=== PATIENT | female | born 1945 | race Caucasian/White ===

== ENCOUNTER → 2020-06-02 | Outpatient (CLI) | payer MEDICARE ==
--- NOTE | 2020-06-02 16:02 | XR ---
EXAMINATION TYPE: XR skull complete DATE OF EXAM: 06/02/2020 COMPARISON: NONE HISTORY: Pre-MRI clearance. Rule out foreign body prior ear surgery. TECHNIQUE: Skull complete with 4 views including both lateral and frontal along with posterior projec tions. FINDINGS: No suspicious metallic intracranial foreign body identified to prevent MRI study. Surgical clips in the left neck are incidentally noted. IMPRESSION: As above.
== END | disposition home or self-care (01) ==
LOC: RADXRMAIN 15:27
PROVIDERS: ATTEND Orthopaedic Surgery Orthopaedic Surgery of the Spine
DX: Z03.89 Encounter for observation for other suspected diseases and conditions ruled out (principal); Z13.9 Encounter for screening, unspecified; Z98.890 Other specified postprocedural states
CPT/HCPCS: 70260

== ENCOUNTER 2020-11-19 11:56 | Emergency (ER) | payer MEDICARE ==
[2020-11-19] MEDS ORDERED: SODIUM CHLORIDE 0.9% 500 ML 500 ML IV ONE (12:39)
--- NOTE | 2020-11-19 12:43 | ED ---
SOB HPI - General Chief Complaint: Shortness of Breath Stated Complaint: dizziness/low blood pressure Time Seen by Provider: 11/19/20 12:28 Source: patient Mode of arrival: wheelchair Limitations: physical limitation - History of Present Illness Initial Comments: Is a 75-year-old female with a history of throat cancer multiple years ago, hypertension, and low back pain who presents emergent department for dyspnea. The patient states that she doesn't and having exertional dyspnea for last 2 weeks. She states that any type of exertion seems to make it worse. She is also been complaining of some lightheadedness that she states is worse with standing. She denies any orthopnea. No lower chrie swelling. She denies any current chest pain. She states that she did have an episode of chest pain about one month ago however had an EKG done at that time and was unremarkable. She has not had any chest pain since these new symptoms started. She does admit to a little bit of a cough that is productive of white phlegm. She denies any fevers or chills. No recent nausea, vomiting, or diarrhea. No fevers or chills. She is vaccinated against Covid. She denies any other acute complaints at this time. - Related Data Home Medications Medication Instructions Recorded Confirmed Acetaminophen Tab [Tylenol Tab] 500 mg PO Q6H PRN 11/19/20 11/19/20 Atorvastatin [Lipitor] 20 mg PO HS 11/19/20 11/19/20 Carvedilol [Coreg] 12.5 mg PO BID 11/19/20 11/19/20 Lisinopril-Hctz 20-12.5 mg 1 tab PO DAILY 11/19/20 11/19/20 [Zestoretic 20-12.5] Allergies Allergy/AdvReac Type Severity Reaction Status Date / Time Penicillins Allergy Rash/Hives Verified 11/19/20 13:11 Review of Systems ROS Statement: Those systems with pertinent positive or pertinent negative responses have been documented in the HPI. ROS Other: All systems not noted in ROS Statement are negative. Past Medical History Past Medical History: Cancer Additional Past Medical History / Comment(s): mouth and throat History of Any Multi-Drug Resistant Organisms: None Reported Past Surgical History: Back Surgery Past Psychological History: No Psychological Hx Reported Smoking Status: Former smoker Past Alcohol Use History: None Reported Past Drug Use History: None Reported General Exam - General Exam Comments Initial Comments: Constitutional: Awake alert Appears comfortable Head: Normocephalic atraumatic Eyes: no conjunctival injection No scleral icterus EOMI Neck: No JVD Supple Heart: Regular rate rhythm normal S1-S2 no murmurs Lungs: Clear to auscultation bilaterally No wheezing No rales Abdomen: Soft nondistended nontender Extremities: Non edematous DP pulses intact Radial pulses intact Neuro: A&Ox3 No focal neurologic deficits Psych: Appropriate mood and affect Limitations: physical limitation Course Vital Signs 11/19/20 11/19/20 11/19/20 12:07 12:30 13:30 Temperature 97.3 F L Pulse Rate 60 55 L Respiratory 22 18 18 Rate Blood Pressure 111/57 121/55 O2 Sat by Pulse 98 99 Oximetry 11/19/20 11/19/20 14:00 15:01 Temperature 97.9 F Pulse Rate 53 L 53 L Respiratory 18 16 Rate Blood Pressure 106/44 99/42 O2 Sat by Pulse 97 99 Oximetry - Reevaluation(s) Reevaluation #1: EKG showing normal sinus rhythm with a rate of 57. His no abnormal ST 7 changes or T-wave inversions. QTC is 406. Other intervals are normal. No ectopy. 11/19/20 12:42 Medical Decision Making - Medical Decision Making Is a 75-year-old female who presents emergency department for shortness of breath and lightheadedness over the last couple of weeks. Patient was evaluated and was nontoxic appearing. Vital signs were stable. Blood pressures tended to run from the low 100s to 120s systolic. The patient had no episodes of lightheadedness here. The patient was evaluated with blood work, chest x-ray, and EKG. All these were unremarkable. D-dimer did come back slightly elevated so a CTA was performed at the chest. This was unremarkable for any PE however did show some mild emphysema which the patient does admit to history of smoking. I inquired about the patient's medications and she states that she did have her lisinopril and Corag doses increased recently. This could be the reason for her lightheadedness especially upon standing. Told to go back to her previous dosing and call her primary doctor in the morning for readjustment of her medications. She can return emergency permission any worsening or changing symptoms or questions were answered. - Lab Data Result diagrams: 11/19/20 13:01 11/19/20 13:01 Lab Results 11/19/20 11/19/20 11/19/20 Range/Units 13: 13: 13:01 WBC 4.6 (3.8-10.6) k/uL RBC 4.63 (3.80-5.40) m/uL Hgb 14.7 (11.4-16.0) gm/dL Hct 42.6 (34.0-46.0) % MCV 92.1 (80.0-100.0) fL MCH 31.7 (25.0-35.0) pg MCHC 34.4 (31.0-37.0) g/dL RDW 12.4 (11.5-15.5) % Plt Count 178 (150-450) k/uL MPV 7.3 Neutrophils % 61 % Lymphocytes % 26 % Monocytes % 8 % Eosinophils % 3 % Basophils % 1 % Neutrophils # 2.8 (1.3-7.7) k/uL Lymphocytes # 1.2 (1.0-4.8) k/uL Monocytes # 0.4 (0-1.0) k/uL Eosinophils # 0.1 (0-0.7) k/uL Basophils # 0.1 (0-0.2) k/uL PT (9.0-12.0) sec INR (<1.2) APTT (22.0-30.0) sec D-Dimer (<0.60) mg/L FEU Sodium 137 (137-145) mmol/L Potassium 4.2 (3.5-5.1) mmol/L Chloride 99 (98-107) mmol/L Carbon Dioxide 32 H (22-30) mmol/L Anion Gap 6 mmol/L BUN 29 H (7-17) mg/dL Creatinine 0.90 (0.52-1.04) mg/dL Est GFR (CKD-EPI)AfAm 73 (>60 ml/min/1.73 sqM) Est GFR (CKD-EPI)NonAf 64 (>60 ml/min/1.73 sqM) Glucose 99 (74-99) mg/dL Calcium 9.2 (8.4-10.2) mg/dL Magnesium 1.9 (1.6-2.3) mg/dL Total Bilirubin 0.8 (0.2-1.3) mg/dL AST 25 (14-36) U/L ALT 10 (4-34) U/L Alkaline Phosphatase 64 (38-126) U/L Troponin I (0.000-0.034) ng/mL NT-Pro-B Natriuret Pep 323 pg/mL Total Protein 6.4 (6.3-8.2) g/dL Albumin 3.9 (3.5-5.0) g/dL Coronavirus (PCR) (Not Detectd) 11/19/20 11/19/20 11/19/20 Range/Units 13:01 13:01 13:01 WBC (3.8-10.6) k/uL RBC (3.80-5.40) m/uL Hgb (11.4-16.0) gm/dL Hct (34.0-46.0) % MCV (80.0-100.0) fL MCH (25.0-35.0) pg MCHC (31.0-37.0) g/dL RDW (11.5-15.5) % Plt Count (150-450) k/uL MPV Neutrophils % % Lymphocytes % % Monocytes % % Eosinophils % % Basophils % % Neutrophils # (1.3-7.7) k/uL Lymphocytes # (1.0-4.8) k/uL Monocytes # (0-1.0) k/uL Eosinophils # (0-0.7) k/uL Basophils # (0-0.2) k/uL PT 11.1 (9.0-12.0) sec INR 1.0 (<1.2) APTT 23.1 (22.0-30.0) sec D-Dimer 0.89 H (<0.60) mg/L FEU Sodium (137-145) mmol/L Potassium (3.5-5.1) mmol/L Chloride (98-107) mmol/L Carbon Dioxide (22-30) mmol/L Anion Gap mmol/L BUN (7-17) mg/dL Creatinine (0.52-1.04) mg/dL Est GFR (CKD-EPI)AfAm (>60 ml/min/1.73 sqM) Est GFR (CKD-EPI)NonAf (>60 ml/min/1.73 sqM) Glucose (74-99) mg/dL Calcium (8.4-10.2) mg/dL Magnesium (1.6-2.3) mg/dL Total Bilirubin (0.2-1.3) mg/dL AST (14-36) U/L ALT (4-34) U/L Alkaline Phosphatase (38-126) U/L Troponin I <0.012 (0.000-0.034) ng/mL NT-Pro-B Natriuret Pep pg/mL Total Protein (6.3-8.2) g/dL Albumin (3.5-5.0) g/dL Coronavirus (PCR) Not Detected (Not Detectd) Disposition Clinical Impression: Dyspnea, Medication side effect, Congestive heart failure Disposition: HOME SELF-CARE Condition: Stable Instructions (If sedation given, give patient instructions): Chronic Hypertension (ED) Additional Instructions: Please decrease your lisinopril dose down to the 10 mg which he was originally and call your primary doctor tomorrow to have your blood pressure medications readjusted area Is patient prescribed a controlled substance at d/c from ED?: No Referrals: Mele Young MD [Primary Care Provider] - 1-2 days
--- NOTE | 2020-11-19 12:56 | XR ---
EXAMINATION TYPE: XR chest 2V DATE OF EXAM: 11/19/2020 COMPARISON: None INDICATION: Short of breath TECHNIQUE: Frontal and lateral views of the chest are obtained. FINDINGS: The heart size is normal. The pulmonary vasculature is normal. The lungs are clear. Lower vertebral thoracic vertebroplasty is evident. There is a compression defo rmity within the mid thoracic level. Good inspiratory effort is present IMPRESSION: 1. No acute pulmonary process. 2. Midthoracic compression deformity of indeterminate age. There is prior vertebroplasty in the lower thoracic.
[2020-11-19 13:14] LABS: Basophils # (A) 0.1 k/uL (0-0.2); Basophils % (A) 1 %; Eosinophils # (A) 0.1 k/uL (0-0.7); Eosinophils % (A) 3 %; HCT 42.6 % (34.0-46.0); HGB 14.7 gm/dL (11.4-16.0); Lymphocytes # (A) 1.2 k/uL (1.0-4.8); Lymphocytes % (A) 26 %; MCH 31.7 pg (25.0-35.0); MCHC 34.4 g/dL (31.0-37.0); MCV 92.1 fL (80.0-100.0); Mean Platelet Volume 7.3; Monocytes # (A) 0.4 k/uL (0-1.0); Monocytes % (A) 8 %; Neutrophils # (A) 2.8 k/uL (1.3-7.7); Neutrophils % (A) 61 %; Platelet Count 178 k/uL (150-450); RBC 4.63 m/uL (3.80-5.40); RDW 12.4 % (11.5-15.5); WBC 4.6 k/uL (3.8-10.6)
[2020-11-19 13:24] LABS: Albumin 3.9 g/dL (3.5-5.0); Calcium 9.2 mg/dL (8.4-10.2); Magnesium 1.9 mg/dL (1.6-2.3); Potassium 4.2 mmol/L (3.5-5.1); Total Bilirubin 0.8 mg/dL (0.2-1.3); Total Protein 6.4 g/dL (6.3-8.2)
[2020-11-19 13:28] LABS: Partial Thromboplastin Time 23.1 sec (22.0-30.0); Prothrombin Time 11.1 sec (9.0-12.0)
[2020-11-19 13:33] LABS: D-Dimer 0.89 mg/L FEU (<0.60)
[2020-11-19 14:20] VITALS: PULSE 53
--- NOTE | 2020-11-19 14:43 | CT ---
EXAMINATION TYPE: CT angio chest DATE OF EXAM: 11/19/2020 COMPARISON: None HISTORY: HYPOTENSION, ELEVATED D-DIMER CT DLP: 270.9 mGycm Automated exposure control for dose reduction was used. CONTRAST: Performed with IV Contrast, patient injected with 80 mL of Isovue 370. There are 3-D post processed images. There is some mild pulmonary emphysema. There is minimal reticular interstitial infiltrate in the pos terior lung reza. Heart appears borderline enlarged. There is small pericardial effusion. There are no hilar masses. There is no mediastinal adenopathy. There is no pleural effusion. Thoracic aorta is atheromatous. Ascending Aorta measures 3.8 cm. There is no dissection. There is normal contrast opacification of the pulmonary arteries. There are no filling defects. There is degenerative spurring in the thoracic spine. There is 25% wedging of T12 vertebra with verte broplasty. There is 40% wedging of T9 vertebra. The sternum appears intact. IMPRESSION: No evidence of pulmonary embolism. COPD. Minimal fibrotic changes and subsegmental atelectasis at the lung bases. mild thoracic compression fractures are probably old.
[2020-11-19 15:02] VITALS: BP 99/42; RESP 16; TEMP 97.9
== END 2020-11-19 15:02 | disposition home or self-care (01) ==
LOC: EC 11:56
DX: I11.0 Hypertensive heart disease with heart failure (principal); I50.9 Heart failure, unspecified; J44.9 Chronic obstructive pulmonary disease, unspecified; Z79.899 Other long term (current) drug therapy; Z87.891 Personal history of nicotine dependence; Z88.0 Allergy status to penicillin; Z20.822 Contact with and (suspected) exposure to COVID-19
CPT/HCPCS: 36415; 93005; 85379; 83880; 80053; 83735; 84484; 85025; 85610; 85730; 87635; 71046; 71275; 99285; Q9967

== ENCOUNTER 2021-05-25 08:23 | Day surgery (SDC) | payer MEDICARE ==
[2021-05-23 15:19] VITALS: BMI 24.0
[2021-05-25 09:05] VITALS: TEMP 97
[2021-05-25] MEDS: LACTATED RINGERS 1,000 ML IV SCH ×2 (09:12→09:35)
[2021-05-25] MEDS ORDERED: LIDOCAINE 1% INJ 10MG/ML (20 ML MDV) ONE (09:36)
[2021-05-25] MEDS ORDERED: PROPOFOL 10 MG/ML 20 ML VIAL IV ONE (09:36)
--- NOTE | 2021-05-25 09:55 | P.PCN ---
Date of Procedure: 05/25/21 Procedure(s) Performed: BRIEF HISTORY: Patient is a 75-year-old pleasant female scheduled for an elective colonoscopy as a part of screening for colorectal neoplasia. PROCEDURE PERFORMED: Colonoscopy with biopsy. PREOPERATIVE DIAGNOSIS: Screening for colon cancer. IV sedation per Anesthesia. PROCEDURE: After informed consent was obtained, the patient, was brought into the endoscopy unit. IV sedation was administered by Anesthesia under continuous monitoring. Digital rectal examination was normal. Initially the Olympus CF-160 flexible video colonoscope was then inserted in the rectum, gradually advanced into the cecum without any difficulty. Careful examination was performed as the scope was gradually being withdrawn. Ileocecal valve and the appendiceal orifice were visualized and appeared normal. Prep was excellent. Mucosa of the cecum, ascending colon, transverse colon, descending colon, appeared normal. In the sigmoid: There was a 3 mm polyp that was removed by cold biopsy. Scattered sigmoid diverticulosis seen. Rest of sigmoid colon, and rectum appeared normal. Retroflexion was performed in the rectum and no lesions were seen. The patient tolerated the procedure well. IMPRESSION: 3 mm; sigmoid polyp status post biopsy Sigmoid diverticulosis RECOMMENDATIONS: Findings of this examination were discussed with the patient is a family. She was advised to follow with the biopsy results. If the biopsy reveals adenoma she can have a repeat colonoscopy in 5 years.
[2021-05-25 10:11] VITALS: BP 156/77; PULSE 68; RESP 20
== END 2021-05-25 10:29 | disposition home or self-care (01) ==
LOC: ORWHC2ENDO 08:23
PROVIDERS: ATTEND Internal Medicine Gastroenterology
DX: Z12.11 Encounter for screening for malignant neoplasm of colon (principal); D12.5 Benign neoplasm of sigmoid colon; K57.30 Diverticulosis of large intestine without perforation or abscess without bleeding; I10 Essential (primary) hypertension; E78.5 Hyperlipidemia, unspecified; Z85.21 Personal history of malignant neoplasm of larynx; Z98.890 Other specified postprocedural states; Z97.2 Presence of dental prosthetic device (complete) (partial); Z79.82 Long term (current) use of aspirin; Z79.899 Other long term (current) drug therapy; Z88.0 Allergy status to penicillin
CPT/HCPCS: 87798 ×3; 87496; 87498; 87529; 88305; 87502; 87634; 45380; J2001; J2704

== ENCOUNTER → 2022-07-22 | Outpatient (CLI) | payer MEDICARE ==
--- NOTE | 2022-07-22 12:02 | CA ---
Transthoracic Echo Report Name: Shirley Montilla Age: 76 Gender: F : 1945 Exam Date: 07/22/2022 11:11 Exam Location: [facility] Ht (in): 64 Wt (lb): 140 Ordering Physician: Mele Young MD Attending/Referring Phys: Audrey Nur PAC [employer] Kacie Craig RDCS Procedure CPT: Indications: I50.9 heart failure Cardiac Hx: Technical Quality: Good Contrast 1: Total Dose (mL): Contrast 2: Total Dose (mL): MEASUREMENTS (Male / Female) Normal Values 2D ECHO LV Diastolic Diameter PLAX 5.0 cm 4.2 - 5.9 / 3.9 - 5.3 cm LV Systolic Diameter PLAX 2.9 cm IVS Diastolic Thickness 1.2 cm 0.6 - 1.0 / 0.6 - 0.9 cm LVPW Diastolic Thickness 1.3 cm 0.6 - 1.0 / 0.6 - 0.9 cm LV Relative Wall Thickness 0.5 RV Internal Dim ED PLAX 3.2 cm LA Systolic Diameter LX 3.7 cm 3.0 - 4.0 / 2.7 - 3.8 cm LA Volume 56.6 cm??? 18 - 58 / 22 - 52 cm??? M-MODE Aortic Root Diameter MM 3.0 cm MV E Point Septal Separation 0.5 cm AV Cusp Separation MM 2.1 cm DOPPLER AV Peak Velocity 133.3 cm/s AV Peak Gradient 7.1 mmHg AI Peak Velocity 559.1 cm/s AI Peak Gradient 125.0 mmHg AI Pressure Half Time 731.6 ms MV Area PHT 9.3 cm??? Mitral E Point Velocity 65.9 cm/s Mitral A Point Velocity 51.3 cm/s Mitral E to A Ratio 1.3 MV Deceleration Time 81.2 ms MV E' Velocity 3.2 cm/s Mitral E to MV E' Ratio 20.6 TR Peak Velocity 335.6 cm/s TR Peak Gradient 45.0 mmHg Right Ventricular Systolic Press 48.4 mmHg FINDINGS Left Ventricle Left ventricular ejection fraction is estimated at 50-55 %. Left ventricular cavity size normal. Mildly increased septal wall thickness. Mildly increased posterior wall thickness. Right Ventricle Normal right ventricular size. Moderate pulmonary hypertension. Right Atrium Normal right atrial size. Left Atrium Mildly increased left atrial volume. No evidence for an atrial septal defect. Mitral Valve Mitral valve thickened. Mild mitral regurgitation. Aortic Valve Trileaflet aortic valve. No aortic stenosis. Fzol-be-yatszuew aortic regurgitation. Tricuspid Valve Structurally normal tricuspid valve. No tricuspid prolapse. No tricuspid stenosis. Mild tricuspid regurgitation. Pulmonic Valve Mild pulmonic regurgitation. Pericardium Normal pericardium. No pericardial effusion. Aorta Normal size aortic root and proximal ascending aorta. CONCLUSIONS Left ventricular ejection fraction 5055% Mild increased left ventricular wall thickness Mild mitral regurgitation Mild to moderate aortic regurgitation No pericardial effusion RVSP 48 Previewed by: Dr. Aydin Sutton DO (Electronically Signed) Final Date: 22 July 2022 12:01
== END | disposition home or self-care (01) ==
LOC: RADECHMAIN 11:07
PROVIDERS: ATTEND Family Medicine
DX: I08.0 Rheumatic disorders of both mitral and aortic valves (principal); I50.9 Heart failure, unspecified
CPT/HCPCS: 93306

== ENCOUNTER 2022-11-16 13:47 | Observation (INO) | payer MEDICARE ==
[2022-11-16] MEDS ORDERED: SODIUM CHLORIDE 0.9% 500 ML 500 ML IV STA (14:00)
--- NOTE | 2022-11-16 14:23 | ED ---
Weakness HPI - General Chief complaint: Weakness Stated complaint: Weakness Time Seen by Provider: 11/16/22 13:59 Source: patient Mode of arrival: ambulatory Limitations: no limitations - History of Present Illness Initial comments: Patient is a 77-year-old female who presents to the emergency department for evaluation of weakness. Patient expresses concern that it started after her blood pressure medication was switched 2 weeks ago. Patient on coreg and lisinopril which was switched to coreg and amlodipine Benzapril. Patient reports nausea which is causing decreased oral intake. She also has dry cough and runny nose. No recent sick contacts. No recent falls. No focal weakness. She denies fever, chills, abdominal pain, vomiting diarrhea, blood in stool. She denies chest pain and shortness of breath. No burning with urination. - Related Data Home Medications Medication Instructions Recorded Confirmed Acetaminophen Tab [Tylenol Tab] 1,000 mg PO Q6H PRN 11/19/20 11/16/22 carvediloL [Coreg] 12.5 mg PO BID 11/19/20 11/16/22 Cholecalciferol [Vitamin D3 (125 125 mcg PO Q48H 11/16/22 11/16/22 Mcg = 5000 Iu)] lisinopriL [Zestril] 10 mg PO DAILY 11/16/22 11/16/22 Allergies Allergy/AdvReac Type Severity Reaction Status Date / Time Penicillins Allergy Rash/Hives Verified 11/16/22 14:26 Review of Systems ROS Statement: Those systems with pertinent positive or pertinent negative responses have been documented in the HPI. ROS Other: All systems not noted in ROS Statement are negative. Past Medical History Past Medical History: Cancer, Hyperlipidemia, Hypertension Additional Past Medical History / Comment(s): mouth and throat CANCER History of Any Multi-Drug Resistant Organisms: None Reported Past Surgical History: Back Surgery Additional Past Surgical History / Comment(s): COLONOSCOPY, EAR SX, Past Anesthesia/Blood Transfusion Reactions: No Reported Reaction Past Psychological History: No Psychological Hx Reported Smoking Status: Former smoker Past Alcohol Use History: None Reported Past Drug Use History: None Reported - Past Family History Mother Family Medical History: No Reported History General Exam Limitations: no limitations General appearance: alert, in no apparent distress Eye exam: Present: normal appearance, PERRL, EOMI. Absent: scleral icterus, conjunctival injection, periorbital swelling Respiratory exam: Present: normal lung sounds bilaterally. Absent: respiratory distress, wheezes, rales, rhonchi, stridor Cardiovascular Exam: Present: regular rate, normal rhythm, normal heart sounds. Absent: systolic murmur, diastolic murmur, rubs, gallop, clicks GI/Abdominal exam: Present: soft, normal bowel sounds. Absent: distended, tenderness, guarding, rebound, rigid Extremities exam: Present: normal inspection, full ROM, normal capillary refill Neurological exam: Present: alert, oriented X3, CN II-XII intact Psychiatric exam: Present: normal affect, normal mood Skin exam: Present: warm, dry, intact, normal color. Absent: rash Course Vital Signs 11/16/22 13:52 Temperature 97.5 F L Pulse Rate 55 L Respiratory 22 Rate Blood Pressure 113/53 O2 Sat by Pulse 96 Oximetry Medical Decision Making - Medical Decision Making EKG taken at, interpreted by me sinus bradycardia with short OH interval with occasional premature ventricular complexes ventricular rate 57, OH interval 110, QRS duration 93, QTc 417 Was pt. sent in by a medical professional or institution (Dr. PA, [facility], urgent care, hospital, or long-term...) When possible be specific @ -[No] Did you speak to anyone other than the patient for history (EMS, parent, family, police, friend...)? What history was obtained from this source @ -[No] Did you review nursing and triage notes (agree or disagree)? Why? @ -[I reviewed and agree with nursing and triage notes] Were old charts reviewed (outside hosp., previous admission, EMS record, old EKG, old radiological studies, urgent care reports/EKG's, long-term records)? Report findings @ -[No old charts were reviewed] Differential Diagnosis (chest pain, altered mental status, abdominal pain women, abdominal pain men, vaginal bleeding, weakness, fever, dyspnea, syncope, headache, dizziness, GI bleed, back pain, seizure, CVA, palpatations, mental health)? @ -Differential Weakness: Hypoglycemia, shock, sepsis, hyponatremia, anemia, infection, PR, ETOH, adverse medicine reaction, overdose, stroke, this is not meant to be an all-inclusive list. EKG interpreted by me (3pts min.). @ -[As above] X-rays interpreted by me (1pt min.). @ -Yes, chest x-ray shows no acute process. CT interpreted by me (1pt min.). @ -Yes, CT abdomen and pelvis with contrast is concerning for a mildly dilated gallbladder neck which could relate cholecystitis or gallbladder dysfunction. U/S interpreted by me (1pt. min.). @ -No. Report shows a large gallstone and dilated gallbladder could be cholecystitis. There is mild gallbladder wall thickening considering the gallbladder dilation. No dilated ducts. What testing was considered but not performed or refused? (CT, X-rays, U/S, labs )? Why? @ -[None] What meds were considered but not given or refused? Why? @ -[None] Did you discuss the management of the patient with other professionals (professionals i.e. , PA, [facility], lab, RT, psych nurse, psychosocial rehabilitation counselor, cuffer, teacher, school services officer, field case manager)? Give summary @ -[No] Was smoking cessation discussed for >3mins.? @ -[No] Was critical care preformed (if so, how long)? @ -[No] Were there social determinants of health that impacted care today? How? (Homelessness, low income, unemployed, alcoholism, drug addiction, transportation, low edu. Level, literacy, decrease access to med. care, senior living, rehab)? @ -[No] Was there de-escalation of care discussed even if they declined (Discuss DNR or withdrawal of care, Hospice)? DNR status @ -[No] What co-morbidities impacted this encounter? (DM, HTN, Smoking, COPD, CAD, Cancer, CVA, ARF, Chemo, Hep., AIDS, mental health diagnosis, sleep apnea, morbid obesity)? @ -[None] Was patient admitted / discharged? Hospital course, mention meds given and route, prescriptions, significant lab abnormalities, going to OR and other pert inent info. @ -Patient presenting with generalized weakness and vomiting. No fever. No abdominal pain. Patient appears dehydrated. Laboratory studies obtained. There is no leukocytosis. Liver enzymes and bilirubin are normal. Urinalysis reflects dehydration. COVID-19, influenza, RSV are not detected. Chest x-ray negative for acute process. CT of the abdomen and pelvis shows a mildly dilated gallbladder neck concerning for cholecystitis versus gallbladder dysfunction. Ultrasound obtained which shows a large gallstone with mild gallbladder wall thickening. Patient given fluid bolus and Zofran. No further episodes in the emergency department. Patient will be admitted to obs for further evaluation and management. Dr. Simpson accepts admission, general surgery on consult Undiagnosed new problem with uncertain prognosis? @ -[No] Drug Therapy requiring intensive monitoring for toxicity (Heparin, Nitro, Insuli n, Cardizem)? @ -[No] Were any procedures done? @ -[No] Diagnosis/symptom? @ -cholelithiasis Acute, or Chronic, or Acute on Chronic? @ -acute Uncomplicated (without systemic symptoms) or Complicated (systemic symptoms)? @ -uncomplicated Side effects of treatment? @ -[No] Exacerbation, Progression, or Severe Exacerbation? @ -[No] Poses a threat to life or bodily function? How? (Chest pain, [place], PR, pneumonia, PE, COPD, DKA, ARF, appy, cholecystitis, CVA, Diverticulitis, Homicidal, Suicidal, threat to staff... and all critical care pts) @ -[No] Dr. Velasquez is my attending. - Lab Data Result diagrams: 11/16/22 14:57 11/16/22 14:57 Lab Results 11/16/22 11/16/22 11/16/22 Range/Units 14:00 14:57 14:57 WBC 6.9 (3.8-10.6) k/uL RBC 5.09 (3.80-5.40) m/uL Hgb 15.5 (11.4-16.0) gm/dL Hct 47.4 H (34.0-46.0) % MCV 93.2 (80.0-100.0) fL MCH 30.4 (25.0-35.0) pg MCHC 32.6 (31.0-37.0) g/dL RDW 12.9 (11.5-15.5) % Plt Count 188 (150-450) k/uL MPV 7.6 Neutrophils % 82 % Lymphocytes % 10 % Monocytes % 5 % Eosinophils % 1 % Basophils % 1 % Neutrophils # 5.6 (1.3-7.7) k/uL Lymphocytes # 0.7 L (1.0-4.8) k/uL Monocytes # 0.4 (0-1.0) k/uL Eosinophils # 0.1 (0-0.7) k/uL Basophils # 0.0 (0-0.2) k/uL Sodium 140 (137-145) mmol/L Potassium 3.9 (3.5-5.1) mmol/L Chloride 105 (98-107) mmol/L Carbon Dioxide 31 H (22-30) mmol/L Anion Gap 4 mmol/L BUN 33 H (7-17) mg/dL Creatinine 0.59 (0.52-1.04) mg/dL Est GFR (CKD-EPI)AfAm >90 (>60 ml/min/1.73 sqM) Est GFR (CKD-EPI)NonAf 89 (>60 ml/min/1.73 sqM) Glucose 135 H (74-99) mg/dL Calcium 9.4 (8.4-10.2) mg/dL Total Bilirubin 0.9 (0.2-1.3) mg/dL AST 21 (14-36) U/L ALT 14 (4-34) U/L Alkaline Phosphatase 64 (38-126) U/L NT-Pro-B Natriuret Pep pg/mL Total Protein 6.7 (6.3-8.2) g/dL Albumin 4.0 (3.5-5.0) g/dL Urine Color Yellow Urine Appearance Clear (Clear) Urine pH 5.5 (5.0-8.0) Ur Specific [place] >1.050 H (1.001-1.035) Urine Protein Trace H (Negative) Urine Glucose (UA) Negative (Negative) Urine Ketones 1+ H (Negative) Urine Blood Small H (Negative) Urine Nitrite Negative (Negative) Urine Bilirubin Negative (Negative) Urine Urobilinogen <2.0 (<2.0) mg/dL Ur Leukocyte Esterase Negative (Negative) Urine RBC 7 H (0-5) /hpf Urine WBC 2 (0-5) /hpf Ur Squamous Epith Cells 1 (0-4) /hpf Urine Mucus Occasional H (None) /hpf Influenza Type A (PCR) (Not Detectd) Influenza Type B (PCR) (Not Detectd) RSV (PCR) (Not Detectd) SARS-CoV-2 (PCR) (Not Detectd) 11/16/22 11/16/22 Range/Units 14:57 14:57 WBC (3.8-10.6) k/uL RBC (3.80-5.40) m/uL Hgb (11.4-16.0) gm/dL Hct (34.0-46.0) % MCV (80.0-100.0) fL MCH (25.0-35.0) pg MCHC (31.0-37.0) g/dL RDW (11.5-15.5) % Plt Count (150-450) k/uL MPV Neutrophils % % Lymphocytes % % Monocytes % % Eosinophils % % Basophils % % Neutrophils # (1.3-7.7) k/uL Lymphocytes # (1.0-4.8) k/uL Monocytes # (0-1.0) k/uL Eosinophils # (0-0.7) k/uL Basophils # (0-0.2) k/uL Sodium (137-145) mmol/L Potassium (3.5-5.1) mmol/L Chloride (98-107) mmol/L Carbon Dioxide (22-30) mmol/L Anion Gap mmol/L BUN (7-17) mg/dL Creatinine (0.52-1.04) mg/dL Est GFR (CKD-EPI)AfAm (>60 ml/min/1.73 sqM) Est GFR (CKD-EPI)NonAf (>60 ml/min/1.73 sqM) Glucose (74-99) mg/dL Calcium (8.4-10.2) mg/dL Total Bilirubin (0.2-1.3) mg/dL AST (14-36) U/L ALT (4-34) U/L Alkaline Phosphatase (38-126) U/L NT-Pro-B Natriuret Pep 350 pg/mL Total Protein (6.3-8.2) g/dL Albumin (3.5-5.0) g/dL Urine Color Urine Appearance (Clear) Urine pH (5.0-8.0) Ur Specific [place] (1.001-1.035) Urine Protein (Negative) Urine Glucose (UA) (Negative) Urine Ketones (Negative) Urine Blood (Negative) Urine Nitrite (Negative) Urine Bilirubin (Negative) Urine Urobilinogen (<2.0) mg/dL Ur Leukocyte Esterase (Negative) Urine RBC (0-5) /hpf Urine WBC (0-5) /hpf Ur Squamous Epith Cells (0-4) /hpf Urine Mucus (None) /hpf Influenza Type A (PCR) Not Detected (Not Detectd) Influenza Type B (PCR) Not Detected (Not Detectd) RSV (PCR) Not Detected (Not Detectd) SARS-CoV-2 (PCR) Not Detected (Not Detectd) Disposition Clinical Impression: Cholelithiasis Disposition: ADMITTED IP TO THIS [facility] Condition: Good Referrals: Mele Young MD [Primary Care Provider] - 1-2 days
[2022-11-16 15:02] LABS: Basophils % (A) 1 %; Eosinophils # (A) 0.1 k/uL (0-0.7); Eosinophils % (A) 1 %; HCT 47.4 % (34.0-46.0); HGB 15.5 gm/dL (11.4-16.0); Lymphocytes # (A) 0.7 k/uL (1.0-4.8); Lymphocytes % (A) 10 %; MCH 30.4 pg (25.0-35.0); MCHC 32.6 g/dL (31.0-37.0); MCV 93.2 fL (80.0-100.0); Mean Platelet Volume 7.6; Monocytes # (A) 0.4 k/uL (0-1.0); Monocytes % (A) 5 %; Neutrophils # (A) 5.6 k/uL (1.3-7.7); Neutrophils % (A) 82 %; Platelet Count 188 k/uL (150-450); RBC 5.09 m/uL (3.80-5.40); RDW 12.9 % (11.5-15.5); WBC 6.9 k/uL (3.8-10.6)
--- NOTE | 2022-11-16 15:05 | XR ---
EXAMINATION TYPE: XR chest 2V DATE OF EXAM: 11/16/2022 COMPARISON: 11/19/2020 HISTORY: Weakness TECHNIQUE: FINDINGS: Heart is normal. Lungs are clear of consolidation. There are no hilar masses. There is vert ebroplasty in the lower thoracic spine. There is T9 anterior wedging 50%. There are chest leads. Ther e is some linear density right middle lobe. IMPRESSION: There is some scarring and atelectasis in the right middle lobe without much change. Thor acic compression fractures without much change no evidence of acute lung disease.
[2022-11-16 15:21] LABS: ALT 14 U/L (4-34); AST 21 U/L (14-36); African American GFR (CKD) >90 (>60 ml/min/1.73 sqM); Alkaline Phosphatase 64 U/L (38-126); Anion Gap 4 mmol/L; Blood Urea Nitrogen 33 mg/dL (7-17); Calcium 9.4 mg/dL (8.4-10.2); Carbon Dioxide 31 mmol/L (22-30); Chloride 105 mmol/L (98-107); Glucose 135 mg/dL (74-99); Non-African American GFR(CKD) 89 (>60 ml/min/1.73 sqM); Potassium 3.9 mmol/L (3.5-5.1); Sodium 140 mmol/L (137-145); Total Bilirubin 0.9 mg/dL (0.2-1.3); Total Protein 6.7 g/dL (6.3-8.2)
--- NOTE | 2022-11-16 16:04 | CT ---
EXAMINATION TYPE: CT abdomen pelvis w con DATE OF EXAM: 11/16/2022 COMPARISON: None HISTORY: n/v CT DLP: 468 mGycm Automated exposure control for dose reduction was used. CONTRAST: Performed with IV Contrast, patient injected with 90ml mL of Isovue 300. Images obtained from the diaphragm to the floor of the pelvis with the IV contrast. The lung bases show minimal subsegmental atelectasis. Heart size is top normal. No pericardial effusi on. No pleural effusion. Liver spleen stomach pancreas appear intact. Bile ducts are not dilated. Gallbladder is dilated and m easures 5.2 cm in diameter. No retroperitoneal adenopathy. There is 1 cm high density focus in the ri ght lobe of the liver that could be calcified granuloma. There is 1.5 cm cyst posterior right lobe of the liver. There is no adrenal mass. There is 2.5 cm cortical cyst anterior right kidney. No hydronephrosis. Ure ters are not dilated. Delayed images show normal renal excretion. There is no retroperitoneal adenopa thy. The bladder distends smoothly. No inguinal hernia. No free fluid in the pelvis. There are sigmoid diverticula. No diverticulitis. There is no mesenteric edema. No ascites or free air. No sign of a bowel obstruction. Appendix is pos terior and medial and appears normal. There is first-degree L5-S1 spondylolisthesis. There is posterior fusion surgery with rods and screws at L5-S1. There is T12 vertebroplasty with 20% wedging. The bony pelvis is intact. The hip joints ar e intact. Sacroiliac joints are intact. Uterus is anteverted. No pelvic mass. IMPRESSION: There is sigmoid diverticulosis without diverticulitis. Mildly dilated gallbladder neck could relate to cholecystitis or gallbladder dysfunction. Normal appe ndix.
[2022-11-16] MEDS ORDERED: SODIUM CHLORIDE 0.9% 1,000 ML IV STA (16:36)
[2022-11-16 16:58] LABS: Appearance,Urine Clear (Clear); Bilirubin,Urine Negative (Negative); Blood,Urine Small (Negative); Color,Urine Yellow; Glucose,Urine (UA) Negative (Negative); Ketones,Urine 1+ (Negative); Leukocyte Esterase,Urine Negative (Negative); Mucus,Urine Occasional /hpf; Nitrite,Urine Negative (Negative); PH, Urine 5.5 (5.0-8.0); Protein,Urine Trace (Negative); RBC,Urine 7 /hpf (0-5); Squamous Epithelial Cell,Urine 1 /hpf (0-4); Urobilinogen,Urine <2.0 mg/dL (<2.0); WBC,Urine 2 /hpf (0-5)
[2022-11-16 17:03] LABS: Specific Gravity,Urine >1.050 (1.001-1.035)
--- NOTE | 2022-11-16 17:13 | US ---
EXAMINATION TYPE: US gallbladder DATE OF EXAM: 11/16/2022 COMPARISON: Same day CT CLINICAL HISTORY: vomiting, gallbladder neck abn CT. Abnormal CT TECHNIQUE: Multiple sonographic images of the right upper quadrant are obtained. FINDINGS: EXAM MEASUREMENTS: Liver Length: 12.9 cm Gallbladder Wall: 0.4 cm CBD: 0.5 cm Right Kidney: 8.9 x 4.5 x 4.4 cm MANAGER AMBULATORY NOTES: Very limited visualization due to overlying bowel gas and pt having many cardiac leads attached to abdomen Pancreas: 4mm panc duct visualized, tail obscured by overlying bowel gas Liver: Couple of small cysts within liver, 1)= left lobe 0.6 cm , 2)= right lobe 1.2 cm Gallbladder: Single, mobile gallstone= 2.9 cm, wall slightly thickened, GB distended Evidence for sonographic Norman's sign: No CBD: wnl Right Kidney: No evidence of hydro, cyst mid= 2.3 x 2.2 x 2.1 cm IMPRESSION: Large gallstone. Dilated gallbladder that could be cholecystitis. Mild gallbladder wall t hickening considering the gallbladder dilation. No dilated ducts.
[2022-11-16] MEDS ORDERED: ONDANSETRON 4 MG/2 ML VIAL IVP PRN (17:33)
[2022-11-16] MEDS: SODIUM CHLORIDE 0.9% 1,000 ML IV SCH (18:05)
[2022-11-16] MEDS ORDERED: carvediloL 12.5 MG TAB PO SCH (19:00)
[2022-11-16] MEDS ORDERED: hydrALAZINE HCL 25 MG TAB PO STA (19:40)
[2022-11-16] MEDS: lisinopriL 10 MG TAB PO SCH (22:26)
[2022-11-17] MEDS ORDERED: amLODIPine 10 MG TAB PO STA (00:07)
--- NOTE | 2022-11-17 00:15 | P.HPIM ---
History of Present Illness H&P Date: 11/16/22 The patient is a 77-year-old female with a PMH of hypertension who presents to the emergency room with complaints of generalized weakness and dizziness. The patient reports that over the past 3-4 days, she has been experiencing intermittent nausea leading to poor oral intake. As a result, the patient states that she does not have the energy to perform her ADLs and has been mostly bedbound. The patient reports a long-standing history of intermittent right upper quadrant abdominal discomfort, but states that the last episode was 2 weeks ago. Patient also states that her blood pressure has been elevated over the past few weeks for which she was started on combination amlodipine- benazepril, shortly after which she became lightheaded. She contacted her PCP who switched her back to lisinopril and told her to discontinue the amlodipine- benazepril. She reports feeling better after arrival at the hospital and reports feeling almost at her baseline at the time of interview. Upon arrival at the emergency room, the patient's BP was 113/53 with a high of 211/91 while in the ED. Pulse was 55, respiratory rate 22, temp 97.5F and SpO2 96% on room air. She underwent an extensive evaluation with a CT abdomen and pelvis showing sigmoid diverticulosis without diverticulitis as well as a di lated gallbladder neck possibly due to cholecystitis versus gallbladder dysfunction. Gallbladder ultrasound revealed large gallstones with findings consistent with possible cholecystitis. Chest x-ray revealed compression fractures which were unchanged. EKG reveals sinus bradycardia with short MA interval with PVCs at 57 bpm. Review of systems: Pertinent positives and negatives as discussed in HPI, a complete review of systems was performed and all other systems are negative. Physical examination: Vital signs reviewed General: non toxic, no distress, appears at stated age, normal weight Derm: no unusual rashes/lesions, warm Head: atraumatic, normocephalic, symmetric Eyes: EOMI, no lid lag, anicteric sclera, pupils equal round reactive to light ENT: Nose and ears atraumatic Neck: No cervical lymphadenopathy, trachea midline, supple Mouth: no lip lesion, mucus membranes moist Cardiovascular: S1S2 reg, no murmur, positive dorsalis pedis pulse bilateral, no edema Lungs: CTA bilateral, no rhonchi, no rales, no accessory muscle use Abdominal: soft, nontender to palpation, no guarding Ext: muscle strength 5 out of 5 in all 4 extremities grossly, no gross muscle atrophy, no contractures, Neuro: CN II-XI grossly intact, no gross focal neuro deficits Psych: Alert, oriented, appropriate affect Assessment: Hypertensive urgency Cholelithiasis, low suspicion for cholecystitis as patient afebrile and no leukocytosis Diverticulosis Prerenal azotemia Imaging: CT abdomen and pelvis showing sigmoid diverticulosis without diverticulitis as well as a dilated gallbladder neck possibly due to cholecystitis versus gallbladder dysfunction. Gallbladder ultrasound revealed large gallstones with findings consistent with possible cholecystitis. Chest x-ray revealed compression fractures which were unchanged. EKG reveals sinus bradycardia with short MA interval with PVCs at 57 bpm. Data Review: Laboratory evaluation revealed WBC count 6.9, hemoglobin 15.4, sodium 140, potassium 3.9, CO2 31, BUN 33, creatinine 0.59, glucose 135, and an unremarkable UA. Plan: C/w patient's home antihypertensives Lisinopil 10 mg po qd and Coreg 12.5 mg po bid Start patient on Amlodipine 10 mg po qd. Patient will need a diuretic although the patient is curently experiencing pre-renal azotemia. Fall precautions Cardiac monitoring Surgery consulted for cholelithiasis NPO after midnight PT consult DVT prophylaxis: Heparin subq The patient is admitted with an anticipated less than 2 midnight stay for evaluation of HTN urgency CODE STATUS: Full Code Discussed with: Patient Anticipated discharge date: in am Anticipated discharge place: Home Past Medical History Past Medical History: Cancer, Hyperlipidemia, Hypertension Additional Past Medical History / Comment(s): mouth and throat CANCER History of Any Multi-Drug Resistant Organisms: None Reported Past Surgical History: Back Surgery Additional Past Surgical History / Comment(s): COLONOSCOPY, EAR SX, Past Anesthesia/Blood Transfusion Reactions: No Reported Reaction Past Psychological History: No Psychological Hx Reported Smoking Status: Former smoker Past Alcohol Use History: None Reported Additional Past Alcohol Use History / Comment(s): QUIT SMOKING 20+ YEARS AGO Past Drug Use History: None Reported - Past Family History Mother Family Medical History: Hypertension Medications and Allergies Home Medications Medication Instructions Recorded Confirmed Type Acetaminophen Tab [Tylenol Tab] 1,000 mg PO Q6H PRN 11/19/20 11/16/22 History carvediloL [Coreg] 12.5 mg PO BID 11/19/20 11/16/22 History Cholecalciferol [Vitamin D3 (125 125 mcg PO Q48H 11/16/22 11/16/22 History Mcg = 5000 Iu)] lisinopriL [Zestril] 10 mg PO DAILY 11/16/22 11/16/22 History Allergies Allergy/AdvReac Type Severity Reaction Status Date / Time Penicillins Allergy Rash/Hives Verified 11/16/22 14:26 Physical Exam Vitals: Vital Signs Temp Pulse Pulse Resp BP BP Pulse Ox 11/16/22 19:51 97.9 F 57 L 16 187/76 96 11/16/22 19:27 98.3 F 65 16 189/84 97 11/16/22 18:00 62 16 211/91 97 11/16/22 17:00 65 16 168/71 98 11/16/22 16:00 61 18 160/71 97 11/16/22 13:52 97.5 F L 55 L 22 113/53 96 Intake and Output 11/16/22 11/16/22 11/16/22 06:59 14:59 22:59 Other: # Voids 1 Weight 63.503 kg 63.503 kg Results CBC & Chem 7: 11/16/22 14:57 11/16/22 14:57 Labs: Abnormal Lab Results - Last 24 Hours (Table) 11/16/22 11/16/22 11/16/22 Range/Units 14:00 14:57 14:57 Hct 47.4 H (34.0-46.0) % Lymphocytes # 0.7 L (1.0-4.8) k/uL Carbon Dioxide 31 H (22-30) mmol/L BUN 33 H (7-17) mg/dL Glucose 135 H (74-99) mg/dL Ur Specific [place] >1.050 H (1.001-1.035) Urine Protein Trace H (Negative) Urine Ketones 1+ H (Negative) Urine Blood Small H (Negative) Urine RBC 7 H (0-5) /hpf Urine Mucus Occasional H (None) /hpf Thrombosis Risk Factor Assmnt - Choose All That Apply Any of the Below Risk Factors Present?: No Other Risk Factors: Yes Each Risk Factor Represents 3 Points: Age 75 years or older Other congenital or acquired thrombophilia - If yes, enter type in comment: No Thrombosis Risk Factor Assessment Total Risk Factor Score: 3 Thrombosis Risk Factor Assessment Level: Moderate Risk
[2022-11-17] MEDS ORDERED: AMINOPHYLLINE 500 MG/20 ML VIAL IV PRN (08:43)
[2022-11-17] MEDS ORDERED: CAFFEINE CITRATE 60 MG/3 ML VIAL IV PRN (08:43)
--- NOTE | 2022-11-17 08:43 | P.CRDCN ---
History of Present Illness History of present illness: HISTORY OF PRESENTING ILLNESS Patient is pleasant 77-year-old female with history of hypertension, dyspnea who follows in the office with myself. She states that Dr. Young adjusted her medi cations October 31 and since that time has been having some issues with feeling lightheaded and dizzy. We have previously attempted a stress test in office however blood pressure to elevated and therefore the stress test was rescheduled. She normally takes lisinopril 10 mg daily as well as Coreg 3.125 mg twice a day. She was changed on October 31 to amlodipine/benazepril and was also taking Coreg at the same time. She states since that time she has felt more dizzy and lightheaded mainly with standing. Additionally over last 3 days she has had decreased appetite however denies any abdominal pain. CT did show some concern of dilated gallbladder neck and ultrasound showed gallstones with p ossible cholecystitis. She has not had any abdominal pain, fevers or white count. She has had extremely labile blood pressures 110s over 50s on arrival however up into the 200s. Multiple medication changes were made by primary on admission from her home medications. EKG shows sinus rhythm with nonspecific minimal ST depressions. Troponin was not drawn. REVIEW OF SYSTEMS At the time of my exam: CONSTITUTIONAL: Denies fever or chills. CARDIOVASCULAR: Denies chest pain, +shortness of breath, no orthopnea, PND or palpitations. RESPIRATORY: Denies cough. GASTROINTESTINAL: Denies abdominal pain, diarrhea, constipation, nausea or vomiting. MUSCULOSKELETAL: Denies myalgias. NEUROLOGIC: Denies numbness, tingling or weakness. ENDOCRINE: Denies fatigue, weight change, polydipsia or polyurina. GENITOURINARY: Denies burning, hematuria or urgency with micturation. HEMATOLOGIC: Denies history of anemia or bleeding. PHYSICAL EXAMINATION Vital signs reviewed. CONSTITUTIONAL: No apparent distress. HEENT: Head is normocephalic. Pupils are equal, round. Sclerae anicteric. Mucous membranes of the mouth are moist. No JVD. No carotid bruit. CHEST EXAMINATION: Lungs are clear to auscultation. No chest wall tenderness is noted on palpation or with deep breathing. HEART EXAMINATION: Regular rate and rhythm. S1, S2 heard. No murmurs, gallops or rub. ABDOMEN: Soft, nontender. Positive bowel sounds. EXTREMITIES: 2+ peripheral pulses, no lower extremity edema and no calf tenderness. NEUROLOGIC EXAMINATION: Patient is awake, alert and oriented x3. ASSESSMENT 1. Episodes of dizziness and lightheadedness with blood pressure 110/50 on arrival, correlates with addition of amlodipine/benazepril 10/31/2022 2. Hypertension, extremely labile 3. Dyspnea 4. Abnormal EKG 5. Decreased appetite over last 3 days unclear etiology 6. Gallstones PLAN Patient has been having episodes of dyspnea with abnormal EKG and had recommended to undergo stress test as an outpatient. She initially had elevated blood pressure during stress test however. Since blood pressure changes were made 10/31 she has felt more dizzy and lightheaded and weak. Suspect mainly related to changes in blood pressure medications. Hold amlodipine/benazepril. Restart home lisinopril 10 mg daily and increase Coreg from 3.125-6.25 mg twice a day. Allow mild permissive hypertension with labile blood pressure expected. Check orthostatics. Check Lexiscan stress test 11/17. Past Medical History Past Medical History: Cancer, Hyperlipidemia, Hypertension Additional Past Medical History / Comment(s): mouth and throat CANCER History of Any Multi-Drug Resistant Organisms: None Reported Past Surgical History: Back Surgery Additional Past Surgical History / Comment(s): COLONOSCOPY, EAR SX, Past Anesthesia/Blood Transfusion Reactions: No Reported Reaction Past Psychological History: No Psychological Hx Reported Smoking Status: Former smoker Past Alcohol Use History: None Reported Additional Past Alcohol Use History / Comment(s): QUIT SMOKING 20+ YEARS AGO Past Drug Use History: None Reported - Past Family History Mother Family Medical History: Hypertension Medications and Allergies Home Medications Medication Instructions Recorded Confirmed Type Acetaminophen Tab [Tylenol Tab] 1,000 mg PO Q6H PRN 11/19/20 11/16/22 History carvediloL [Coreg] 12.5 mg PO BID 11/19/20 11/16/22 History Cholecalciferol [Vitamin D3 (125 125 mcg PO Q48H 11/16/22 11/16/22 History Mcg = 5000 Iu)] lisinopriL [Zestril] 10 mg PO DAILY 11/16/22 11/16/22 History Allergies Allergy/AdvReac Type Severity Reaction Status Date / Time Penicillins Allergy Rash/Hives Verified 11/16/22 14:26 Physical Exam Vitals: Vital Signs Temp Pulse Pulse Resp BP BP BP 11/17/22 07:00 97.7 F 57 L 16 167/73 11/17/22 02:29 64 18 11/17/22 00:39 97.4 F L 64 18 124/63 11/16/22 22:20 186/74 11/16/22 20:07 57 L 16 11/16/22 19:51 97.9 F 57 L 16 187/76 11/16/22 19:27 98.3 F 65 16 189/84 11/16/22 18:00 62 16 211/91 11/16/22 17:00 65 16 168/71 11/16/22 16:00 61 18 160/71 11/16/22 13:52 97.5 F L 55 L 22 113/53 Pulse Ox 11/17/22 07:00 97 11/17/22 02:29 11/17/22 00:39 93 L 11/16/22 22:20 11/16/22 20:07 11/16/22 19:51 96 11/16/22 19:27 97 11/16/22 18:00 97 11/16/22 17:00 98 11/16/22 16:00 97 11/16/22 13:52 96 Intake and Output 11/16/22 11/17/22 11/17/22 22:59 06:59 14:59 Other: Voiding Method Toilet Toilet # Voids 1 2 Weight 63.503 kg Results 11/16/22 14:57 11/16/22 14:57 Cardiac Enzymes 11/16/22 Range/Units 14:57 AST 21 (14-36) U/L CBC 11/16/22 Range/Units 14:57 WBC 6.9 (3.8-10.6) k/uL RBC 5.09 (3.80-5.40) m/uL Hgb 15.5 (11.4-16.0) gm/dL Hct 47.4 H (34.0-46.0) % Plt Count 188 (150-450) k/uL Comprehensive Metabolic Panel 11/16/22 Range/Units 14:57 Sodium 140 (137-145) mmol/L Potassium 3.9 (3.5-5.1) mmol/L Chloride 105 (98-107) mmol/L Carbon Dioxide 31 H (22-30) mmol/L BUN 33 H (7-17) mg/dL Creatinine 0.59 (0.52-1.04) mg/dL Glucose 135 H (74-99) mg/dL Calcium 9.4 (8.4-10.2) mg/dL AST 21 (14-36) U/L ALT 14 (4-34) U/L Alkaline Phosphatase 64 (38-126) U/L Total Protein 6.7 (6.3-8.2) g/dL Albumin 4.0 (3.5-5.0) g/dL Current Medications Generic Name Dose Route Start Last Admin Trade Name Freq PRN Reason Stop Dose Admin Carvedilol 6.25 mg 11/17/22 08:45 Carvedilol 6.25 Mg Tab PO BID-W/MEALS OUMOU Heparin Sodium (Porcine) 5,000 unit 11/17/22 08:00 Heparin Sodium,Porcine/Pf 5,000 Unit/0.5 Ml Syringe SQ Q8HR OUMOU Sodium Chloride 1,000 mls @ 75 mls/hr 11/16/22 17:45 11/16/22 18:05 Saline 0.9% IV 75 mls/hr .[id number] OUMOU Administration Lisinopril 10 mg 11/16/22 19:00 11/16/22 22:26 Lisinopril 10 Mg Tab PO 10 mg DAILY OUMOU Administration Ondansetron HCl 4 mg 11/16/22 17:33 Ondansetron 4 Mg/2 Ml Vial IVP Q8HR PRN Nausea And Vomiting Intake and Output 11/16/22 11/17/22 11/17/22 22:59 06:59 14:59 Other: Voiding Method Toilet Toilet # Voids 1 2 Weight 63.503 kg 11/16/22 14:57 11/16/22 14:57
[2022-11-17] MEDS: lisinopriL 10 MG TAB PO SCH (08:59)
[2022-11-17] MEDS: carvediloL 6.25 MG TAB PO SCH ×2 (08:59→17:16)
[2022-11-17] MEDS: HEPARIN SODIUM,PORCINE/PF 5,000 UNIT/0.5 ML SYRINGE SQ SCH ×2 (08:59→17:16)
[2022-11-17] MEDS ORDERED: amLODIPine 10 MG TAB PO SCH (09:00)
[2022-11-17] MEDS: SODIUM CHLORIDE 0.9% 1,000 ML IV SCH ×2 (09:00→20:25)
--- NOTE | 2022-11-17 14:05 | P.PN ---
Subjective Progress Note Date: 11/17/22 The patient is a 77-year-old female with a PMH of hypertension who presents to the emergency room with complaints of generalized weakness and dizziness. The patient reports that over the past 3-4 days, she has been experiencing intermittent nausea leading to poor oral intake. As a result, the patient st ates that she does not have the energy to perform her ADLs and has been mostly bedbound. The patient reports a long-standing history of intermittent right upper quadrant abdominal discomfort, but states that the last episode was 2 weeks ago. Patient also states that her blood pressure has been elevated over the past few weeks for which she was started on combination amlodipine- benazepril, shortly after which she became lightheaded. She contacted her PCP who switched her back to lisinopril and told her to discontinue the amlodipine- benazepril. She reports feeling better after arrival at the hospital and reports feeling almost at her baseline at the time of interview. Upon arrival at the emergency room, the patient's BP was 113/53 with a high of 211/91 while in the ED. Pulse was 55, respiratory rate 22, temp 97.5F and SpO2 96% on room air. She underwent an extensive evaluation with a CT abdomen and pelvis showing sigmoid diverticulosis without diverticulitis as well as a dilated gallbladder neck possibly due to cholecystitis versus gallbladder dysfunction. Gallbladder ultrasound revealed large gallstones with findings consistent with possible cholecystitis. Chest x-ray revealed compression fractures which were unchanged. EKG reveals sinus bradycardia with short [place] interval with PVCs at 57 bpm. Cardiology was consulted and recommended holding amlodipine/benazepril and restarting lisinopril and Coreg. Troponin was less than 0.012. Orthostatic vitals were negative. She was scheduled for stress test on 11/18. Patient reported no abdominal discomfort and her liver enzymes remain normal. Surgery consult was discontinued. Patient was seen and examined this morning. No acute events overnight. Patient reports no chest pain, shortness breath or palpitations. No nausea or vomiting. No fever or chills. No dizziness. No abdominal pain. General: non toxic, no distress, appears at stated age Derm: warm, dry Head: atraumatic, normocephalic, symmetric Eyes: EOMI, no lid lag, anicteric sclera Mouth: no lip lesion, mucus membranes moist Cardiovascular: Good distal perfusion in all 4 extremities Lungs: Breathing comfortably, no accessory muscle use Ext: no gross muscle atrophy, no edema, no contractures Neuro: no focal neuro deficits Psych: Alert, oriented, appropriate affect #Lightheadedness #Abnormal EKG #Hypertension #Cholelithiasis, low suspicion for cholecystitis as patient afebrile and no leukocytosis #Diverticulosis #Prerenal azotemia Resolved: Hypertensive urgency Based on my assessment of this patient, this patient meets a moderate complexity level of care. I have reviewed the following financial reporting consultant notes: Cardiology note 11/17, old amlodipine/benazepril, restart lisinopril, increase Coreg, check orthostats, obtain stress test. I have reviewed the results of the following tests: Troponin is less than 0.012. I have ordered the following tests: None. I have discussed the care of this patient with the following independent historian: None. I have independently interpreted the following test below: None. I have discussed the management of this patient with the following physician: None. This patient has a moderate risk of morbidity due to the following reasons: Patient has a new diagnosis of hypertensive urgency with uncertain prognosis. Her blood pressure is now normalized. Troponin is negative. Orthostats are negative. Cardiology has been consulted and adjustments have been made to her antihypertensive medication. Plan is for Lexiscan tomorrow. Continue Coreg 6.2 5 mg by mouth twice a day, lisinopril 10 mg by mouth daily. Continue telemetry monitoring. Her gallbladder ultrasound shows a large gallstone with dilated gallbladder. There is no leukocytosis or fever, low concern for acute cholecystitis. Patient is advised to follow-up in the outpatient setting for possible cholecystectomy which is not urgent at this time. Objective - Vital Signs Vital signs: Vital Signs Temp 97.7 F 11/17/22 07:00 Pulse 65 11/17/22 09:38 Resp 16 11/17/22 07:00 BP 121/73 11/17/22 09:38 Pulse Ox 96 11/17/22 09:38 FiO2 21 11/17/22 09:19 Intake & Output 11/16/22 11/17/22 11/17/22 18:59 06:59 18:59 Weight 63.503 kg 63.503 kg Other: Voiding Method Toilet # Voids 2 4 - Labs CBC & Chem 7: 11/16/22 14:57 11/16/22 14:57 Labs: Abnormal Lab Results - Last 24 Hours (Table) 11/16/22 11/16/22 11/16/22 Range/Units 14:00 14:57 14:57 Hct 47.4 H (34.0-46.0) % Lymphocytes # 0.7 L (1.0-4.8) k/uL Carbon Dioxide 31 H (22-30) mmol/L BUN 33 H (7-17) mg/dL Glucose 135 H (74-99) mg/dL Ur Specific [place] >1.050 H (1.001-1.035) Urine Protein Trace H (Negative) Urine Ketones 1+ H (Negative) Urine Blood Small H (Negative) Urine RBC 7 H (0-5) /hpf Urine Mucus Occasional H (None) /hpf
[2022-11-18] MEDS: HEPARIN SODIUM,PORCINE/PF 5,000 UNIT/0.5 ML SYRINGE SQ SCH ×3 (00:16→17:31)
[2022-11-18] MEDS: carvediloL 6.25 MG TAB PO SCH ×2 (06:35→17:31)
[2022-11-18 06:51] LABS: African American GFR (CKD) >90 (>60 ml/min/1.73 sqM); Anion Gap 0 mmol/L; Blood Urea Nitrogen 13 mg/dL (7-17); Carbon Dioxide 26 mmol/L (22-30); Chloride 111 mmol/L (98-107); Glucose 83 mg/dL (74-99); Non-African American GFR(CKD) >90 (>60 ml/min/1.73 sqM); Potassium 3.3 mmol/L (3.5-5.1); Sodium 137 mmol/L (137-145)
[2022-11-18] MEDS ORDERED: REGADENOSON 0.4 MG/5 ML SYRINGE IV PRN (07:00)
[2022-11-18 07:39] VITALS: TEMP 97.6
[2022-11-18] MEDS ORDERED: POTASSIUM CHLORIDE ER 20 MEQ TAB.ER PO STA (08:51)
--- NOTE | 2022-11-18 09:23 | P.PN ---
Subjective Progress Note Date: 11/18/22 HISTORY OF PRESENTING ILLNESS Patient is pleasant 77-year-old female with history of hypertension, dyspnea who follows in the office with myself. She states that Dr. Young adjusted her medications October 31 and since that time has been having some issues with feeling lightheaded and dizzy. We have previously attempted a stress test in office however blood pressure to elevated and therefore the stress test was rescheduled. She normally takes lisinopril 10 mg daily as well as Coreg 3.125 mg twice a day. She was changed on October 31 to amlodipine/benazepril and was also taking Coreg at the same time. She states since that time she has felt more dizzy and lightheaded mainly with standing. Additionally over last 3 days she has had decreased appetite however denies any abdominal pain. CT did show some concern of dilated gallbladder neck and ultrasound showed gallstones with possible cholecystitis. She has not had any abdominal pain, fevers or white count. She has had extremely labile blood pressures 110s over 50s on arrival however up into the 200s. Multiple medication changes were made by primary on admission from her home medications. EKG shows sinus rhythm with nonspecific minimal ST depressions. Troponin was not drawn. 11/18 Patient states that she slept on and off during the night. She denies having any chest pain, no shortness of breath, no palpitations. She is complaining of a headache. Blood pressure readings are improved with medication changes. Repeat blood work reveals a potassium of 3.3. Creatinine 0.4. PHYSICAL EXAMINATION Vital signs reviewed. CONSTITUTIONAL: No apparent distress. HEENT: Head is normocephalic. Pupils are equal, round. Sclerae anicteric. Mucous membranes of the mouth are moist. No JVD. No carotid bruit. CHEST EXAMINATION: Lungs are clear to auscultation. No chest wall tenderness is noted on palpation or with deep breathing. HEART EXAMINATION: Regular rate and rhythm. S1, S2 heard. No murmurs, gallops or rub. ABDOMEN: Soft, nontender. Positive bowel sounds. EXTREMITIES: 2+ peripheral pulses, no lower extremity edema and no calf tenderness. NEUROLOGIC EXAMINATION: Patient is awake, alert and oriented x3. ASSESSMENT 1. Episodes of dizziness and lightheadedness with blood pressure 110/50 on arrival, correlates with addition of amlodipine/benazepril 10/31/2022 2. Hypertension, extremely labile 3. Dyspnea 4. Abnormal EKG 5. Decreased appetite over last 3 days unclear etiology 6. Gallstones PLAN Patient has been having episodes of dyspnea with abnormal EKG and had recommended to undergo stress test as an outpatient. She initially had elevated blood pressure during stress test however. Since blood pressure changes were made 10/31 she has felt more dizzy and lightheaded and weak. Suspect mainly related to changes in blood pressure medications. Continue to Hold amlodipine/benazepril. Restart home lisinopril 10 mg daily and increase Coreg from 3.125-6.25 mg twice a day. Allow mild permissive hypertension with labile blood pressure expected. If Lexiscan stress test is within normal limits, patient is cleared from cardiology for discharge home and she may follow up with Dr. Sutton in the office. Nurse practitioner note has been reviewed, I agree with the documented findings and plan of care. Patient was seen and examined. Objective - Vital Signs Vital signs: Vital Signs Temp 97.6 F 11/18/22 07:00 Pulse 56 L 11/18/22 07:00 Resp 16 11/18/22 07:00 BP 169/73 11/18/22 07:00 Pulse Ox 96 11/18/22 08:01 FiO2 21 11/17/22 09:19 Intake & Output 11/17/22 11/18/22 11/18/22 18:59 06:59 18:59 Other: Voiding Method Toilet # Voids 4 2 - Labs CBC & Chem 7: 11/16/22 14:57 11/18/22 04:59 Labs: Abnormal Lab Results - Last 24 Hours (Table) 11/18/22 Range/Units 04:59 Potassium 3.3 L (3.5-5.1) mmol/L Chloride 111 H (98-107) mmol/L Creatinine 0.40 L (0.52-1.04) mg/dL Calcium 8.0 L (8.4-10.2) mg/dL
[2022-11-18] MEDS ORDERED: lisinopriL 5 MG TAB PO STA (09:52)
[2022-11-18] MEDS: lisinopriL 10 MG TAB PO SCH (10:05)
[2022-11-18] MEDS: SODIUM CHLORIDE 0.9% 1,000 ML IV SCH (10:38)
[2022-11-18] MEDS ORDERED: hydrALAZINE HCL 20 MG/ML 1 ML VIAL IVP STA (11:41)
--- NOTE | 2022-11-18 13:40 | CA ---
Lexiscan Nuclear Stress Test Report Name: Shirley Montilla Exam Date: 11/18/2022 12:47 Exam Location: [facility] Stress Ht (in): 65 Wt (lb): 140 BSA: 1.70 Ordering Phys: Aydin Sutton DO Referring Phys: CRISELDA, Technologist: [place] Mix Age: 77 Gender: F : 1945 Procedure CPT: Indications: Reflex order-Stress test ICD-10 Codes: Patient History: Medications: SEE CHART Meds past 24 hrs: Pretest Chest Pain: STRESS TEST Lexiscan Protocol Exercise Duration (min:sec): 02:[address] Depressions (mm): Angina Score: Isaacs Score: Resting HR (bpm): 74 Peak HR (bpm): 79 Resting BP (mmHg): 153 / 78 Peak BP (mmHg): 169 / 75 MPHR: 144 Target HR: 122 % MPHR: 55 METS: 1.0 Total Dose: Peak Dose: Atropine: Double Product: 47972 BP Response: Stress Termination: PROTOCOL COMPLETE Stress Symptoms: HEADACHE, SHORTNESS OF BREATH Stress Summary: ECG ANALYSIS Resting ECG: Sinus rhythm. Normal conduction. No arrhythmias. Normal repolarization. Stress ECG: No ECG changes from baseline with Lexiscan infusion. Ventricular premature contraction. CONCLUSIONS No ECG evidence of ischemia with Lexiscan infusion. Nuclear test results to follow. Dr. Delaney Weber MD (Electronically Signed) Final Date: 18 November 2022 13:39
[2022-11-18] MEDS ORDERED: REGADENOSON 0.4 MG/5 ML SYRINGE IV ONE (14:00)
--- NOTE | 2022-11-18 14:39 | NM ---
EXAMINATION TYPE: NM stress lexiscan cardiolite DATE OF EXAM: 11/18/2022 COMPARISON: NONE HISTORY: Dyspnea on exertion. Abnormal EKG. TECHNIQUE: After the intravenous administration of 9.7 mCi Tc 99m Sestamibi - Cardiolite resting SPE CT images acquired 95 minutes post injection. The patient received 0.4mg Lexiscan, 25.8 mCi Tc 99m Sestamibi - Stress images obtained [address] injection FINDINGS: Review of stress and rest SPECT images demonstrates no distinct perfusion abnormality. Gated analysi s shows normal wall motion with an estimated left ventricular ejection fraction of 65 %. IMPRESSION: No scintigraphic evidence for reversible ischemia.
--- NOTE | 2022-11-18 15:06 | P.DS ---
Providers Date of admission: 11/16/22 18:05 Expected date of discharge: 11/18/22 Attending physician: Tess Glover DO Primary care physician: Mele Young [facility] Course: The patient is a 77-year-old female with a PMH of hypertension who presents to the emergency room with complaints of generalized weakness and dizziness. The patient reports that over the past 3-4 days, she has been experiencing intermittent nausea leading to poor oral intake. As a result, the patient states that she does not have the energy to perform her ADLs and has been mostly bedbound. The patient reports a long-standing history of intermittent right upp er quadrant abdominal discomfort, but states that the last episode was 2 weeks ago. Patient also states that her blood pressure has been elevated over the past few weeks for which she was started on combination amlodipine-benazepril, shortly after which she became lightheaded. She contacted her PCP who switched her back to lisinopril and told her to discontinue the amlodipine-benazepril. She reports feeling better after arrival at the hospital and reports feeling almost at her baseline at the time of interview. Upon arrival at the emergency room, the patient's BP was 113/53 with a high of 211/91 while in the ED. Pulse was 55, respiratory rate 22, temp 97.5F and SpO2 96% on room air. She underwent an extensive evaluation with a CT abdomen and pelvis showing sigmoid diverticulosis without diverticulitis as well as a dilated gallbladder neck possibly due to cholecystitis versus gallbladder dysfunction. Gallbladder ultrasound revealed large gallstones with findings consistent with possible cholecystitis. Chest x-ray revealed compression fractures which were unchanged. EKG reveals sinus bradycardia with short [place] interval with PVCs at 57 bpm. Cardiology was consulted and recommended holding amlodipine/benazepril and restarting lisinopril and Coreg. Troponin was less than 0.012. Orthostatic vitals were negative. She was scheduled for stress test on 11/18. Patient reported no abdominal discomfort and her liver enzymes remain normal. Surgery consult was discontinued. Lexiscan was negative. Her potassium was decreased at 3.3 which is replaced with potassium chloride 40 mEq by mouth. Patient seen and examined after her stresses. No acute events overnight. Patient denies any chest pain, shortness breath or palpitations. No nausea or vomiting. No fever or chills. Pertinent studies include gallbladder ultrasound, CTAP, Lexiscan. General: non toxic, no distress, appears at stated age Derm: warm, dry Head: atraumatic, normocephalic, symmetric Eyes: EOMI, no lid lag, anicteric sclera Mouth: no lip lesion, mucus membranes moist Cardiovascular: Normal S1-S2. No murmurs rubs or gallops. Lungs: Breathing comfortably, clear to auscultation bilaterally, no accessory muscle use Ext: no gross muscle atrophy, no edema, no contractures Neuro: no focal neuro deficits Psych: Alert, oriented, appropriate affect Discharge diagnoses: #Lightheadedness #Abnormal EKG #Hypertension #Cholelithiasis, low suspicion for cholecystitis as patient afebrile and no leukocytosis #Diverticulosis #Prerenal azotemia Resolved: Hypertensive urgency This complex discharge took 35 minutes to complete. Patient Condition at Discharge: Stable Plan - Discharge Summary Discharge Rx Participant: No New Discharge Prescriptions: New carvediloL [Coreg] 6.25 mg PO BID-W/MEALS #60 tab Continue Acetaminophen Tab [Tylenol] 1,000 mg PO Q6H PRN PRN Reason: Fever And/ Or Pain Cholecalciferol [Vitamin D3 (125 Mcg = 5000 Iu)] 125 mcg PO Q48H lisinopriL [Zestril] 10 mg PO DAILY Discontinued carvediloL [Coreg] 12.5 mg PO BID Discharge Medication List Acetaminophen Tab [Tylenol] 1,000 mg PO Q6H PRN 11/19/20 [History] Cholecalciferol [Vitamin D3 (125 Mcg = 5000 Iu)] 125 mcg PO Q48H 11/16/22 [History] lisinopriL [Zestril] 10 mg PO DAILY 11/16/22 [History] carvediloL [Coreg] 6.25 mg PO BID-W/MEALS #60 tab 11/18/22 [Rx] Follow up Appointment(s)/Referral(s): Aydin Sutton DO [STAFF PHYSICIAN] - 1 Week Mele Young MD [Primary Care Provider] - 1-2 days Discharge Disposition: HOME SELF-CARE
[2022-11-18 16:06] VITALS: RESP 18
[2022-11-18 16:07] VITALS: BP 146/84; PULSE 74
== END 2022-11-18 18:20 | disposition home or self-care (01) ==
LOC: EC 13:47 → 6NMEDSUR 18:05
PROVIDERS: ADMIT Internal Medicine; ATTEND Internal Medicine
DX: R42 Dizziness and giddiness (principal); I16.0 Hypertensive urgency; K80.10 Calculus of gallbladder with chronic cholecystitis without obstruction; M48.54XA Collapsed vertebra, not elsewhere classified, thoracic region, initial encounter for fracture; R79.89 Other specified abnormal findings of blood chemistry; E78.5 Hyperlipidemia, unspecified; R07.9 Chest pain, unspecified; I10 Essential (primary) hypertension; K76.89 Other specified diseases of liver; J98.11 Atelectasis; K57.30 Diverticulosis of large intestine without perforation or abscess without bleeding; N28.1 Cyst of kidney, acquired; M43.17 Spondylolisthesis, lumbosacral region; I49.3 Ventricular premature depolarization; Z79.899 Other long term (current) drug therapy; Z80.0 Family history of malignant neoplasm of digestive organs; Z85.819 Personal history of malignant neoplasm of unspecified site of lip, oral cavity, and pharynx; Z87.891 Personal history of nicotine dependence; Z20.822 Contact with and (suspected) exposure to COVID-19; Z98.1 Arthrodesis status; Z82.49 Family history of ischemic heart disease and other diseases of the circulatory system; Z88.0 Allergy status to penicillin
CPT/HCPCS: 96361 ×4; 96372 ×2; 96374; 99285; 36415; 94760 ×2; 93005; 93017; 83880; 80053; 80048; 84484; 85025; 81001; 87636; 71046; 76705; 74177; 78452; G0378 ×3; A9500; J0360; Q9967; J1644 ×2

== ENCOUNTER 2023-02-15 20:34 | Emergency (ER) | payer MEDICARE ==
[2023-02-15 20:55] VITALS: RESP 18; TEMP 97.2
[2023-02-15] MEDS ORDERED: LIDOCAINE 2%-EPI 1:100,000 20 ML VIAL SQ STA (21:26)
[2023-02-15] MEDS ORDERED: SODIUM CHLORIDE 0.9% 1,000 ML IV STA (21:26)
--- NOTE | 2023-02-15 21:33 | ED ---
General Adult HPI <Haile Mcnamara - Last Filed: 02/16/23 00:00> - General Source: patient, EMS Mode of arrival: EMS Limitations: no limitations <James Rivero - Last Filed: 02/16/23 05:36> - General Chief complaint: Syncope Stated complaint: SYNCOPE Time Seen by Provider: 02/15/23 21:04 - History of Present Illness Initial comments: Dictation was produced using [employer] dictation software. please excuse any grammatical, word or spelling errors. Chief Complaint: 77-year-old female presents to the emergency Department after head injury and syncope History of Present Illness: Patient is 77-year-old female she has past medical history of dyslipidemia and hypertension. She was at her sister's house playing cards when sister heard a thud. After 5 minutes patient was able to open the door. There was a lot of blood on the floor. Patient is not taking any thinners. She's been having multiple bouts of diarrhea for the last several hours. Denies any fever constitutional symptoms. The ROS documented in this emergency department record has been reviewed and confirmed by me. Those systems with pertinent positive or negative responses have been documented in the HPI. All other systems are other negative and/or noncontributory. (James Rivero) - Related Data Home Medications Medication Instructions Recorded Confirmed Acetaminophen Tab [Tylenol] 1,000 mg PO Q6H PRN 11/19/20 11/16/22 Cholecalciferol [Vitamin D3 (125 125 mcg PO Q48H 11/16/22 11/16/22 Mcg = 5000 Iu)] lisinopriL [Zestril] 10 mg PO DAILY 11/16/22 11/16/22 Previous Rx's Medication Instructions Recorded carvediloL [Coreg] 6.25 mg PO BID-W/MEALS #60 tab 11/18/22 lisinopriL [Prinivil] 10 mg PO DAILY #30 tab 11/18/22 Allergies Allergy/AdvReac Type Severity Reaction Status Date / Time Penicillins Allergy Rash/Hives Verified 02/15/23 20:55 Review of Systems ROS Other: All systems not noted in ROS Statement are negative. <Haile Mcnamara - Last Filed: 02/16/23 00:00> ROS Other: All systems not noted in ROS Statement are negative. <James Rivero - Last Filed: 02/16/23 05:36> ROS Statement: Those systems with pertinent positive or pertinent negative responses have been documented in the HPI. Past Medical History Past Medical History: Cancer, Hyperlipidemia, Hypertension Additional Past Medical History / Comment(s): mouth and throat CANCER History of Any Multi-Drug Resistant Organisms: None Reported Past Surgical History: Back Surgery Additional Past Surgical History / Comment(s): COLONOSCOPY, EAR SX, Past Anesthesia/Blood Transfusion Reactions: No Reported Reaction Past Psychological History: No Psychological Hx Reported Smoking Status: Former smoker Past Alcohol Use History: None Reported Past Drug Use History: None Reported - Past Family History Mother Family Medical History: Hypertension <James Rivero - Last Filed: 02/16/23 05:36> General Exam Limitations: no limitations <James Rivero - Last Filed: 02/16/23 05:36> - General Exam Comments Initial Comments: PHYSICAL EXAM: General Impression: Alert and oriented x3, not in acute distress HEENT: 2 cm laceration to the left eyebrow, extra-ocular movements intact, pupils equal and reactive to light bilaterally, mucous membranes moist. Cardiovascular: Heart regular rate and rhythm Chest: Able to complete full sentences, no retractions, no tachypnea Abdomen: abdomen soft, non-tender, non-distended, no organomegaly Musculoskeletal: Pulses present and equal in all extremities, no peripheral edema Motor: no focal deficits noted Neurological: CN II-XII grossly intact, no focal motor or sensory deficits noted Skin: Intact with no visualized rashes Psych: Normal affect and mood (James Rivero) Course Vital Signs 02/15/23 02/15/23 02/16/23 20:45 22:42 00:09 Temperature 97.2 F L Pulse Rate 58 L 71 81 Respiratory 18 18 18 Rate Blood Pressure 189/74 182/66 187/100 O2 Sat by Pulse 96 96 96 Oximetry Procedures - Laceration Laceration #1 Consent Obtained: verbal consent Site: face Size (cm): 5 (5.5 cm) Description: linear Depth: simple, single layer Anesthetic Used: lidocaine 2%, with epi Anesthesia Technique: local infiltration Amount (mls): 4 Pre-repair: wound explored, irrigated extensively Type of Sutures: other (ethilon) Size of Sutures: 6-0 Number of Sutures: 12 Technique: simple, interrupted Patient Tolerated Procedure: well, no complications <Haile Mcnamara - Last Filed: 02/16/23 00:00> Medical Decision Making - Lab Data Result diagrams: 02/15/23 21:52 02/15/23 21:52 <AndersHaile - Last Filed: 02/16/23 00:00> - Lab Data Result diagrams: 02/15/23 21:52 02/15/23 21:52 <James Rivero - Last Filed: 02/16/23 05:36> - Medical Decision Making Was pt. sent in by a medical professional or institution (, PA, SPORTS LEADERSHIP INSTRUCTOR, urgent care, hospital, or halfway...) When possible be specific @ -No Did you speak to anyone other than the patient for history (EMS, parent, family, police, friend...)? What history was obtained from this source @ -Daughter at the bedside states that patient syncopized Did you review nursing and triage notes (agree or disagree)? Why? @ -I reviewed and agree with nursing and triage notes Were old charts reviewed (outside hosp., previous admission, EMS record, old EKG, old radiological studies, urgent care reports/EKG's, halfway records)? Report findings @ -Discharge summary from October of this year shows the patient was admitted for generalized weakness. Echocardiogram from last year shows that patient has no history of cardiomyopathy. Differential Diagnosis (chest pain, altered mental status, abdominal pain women, abdominal pain men, vaginal bleeding, musculoskeletal, weakness, fever, dyspnea, syncope, headache, dizziness, GI bleed, back pain, seizure, CVA, palpatations, mental health)? @ -Differential Syncope: Valvular disease, hypertrophic cardiomyopathy, pulmonary embolism, tamponade, tachycardia, bradycardia, [place], hypovolemia, hemorrhage, dissection, anemia, intracranial hemorrhage, seizure, hypoglycemia, carbon monoxide poisoning, this is not meant to be an all-inclusive list. EKG interpreted by me (3pts min.). @ -My EKG interpretation: Ventricular rate 60, sinus rhythm,. Interval 109, QRS 87, QTC 425. No GA prolongation, no QTC prolongation, no ST or T-wave changes noted. Overall, this EKG is unremarkable X-rays interpreted by me (1pt min.). @ -None done CT interpreted by me (1pt min.). @Computed tomography scan of the brain and C-spine no acute processes U/S interpreted by me (1pt. min.). @ -None done What testing was considered but not performed or refused? (CT, X-rays, U/S, labs)? Why? @ -None What meds were considered but not given or refused? Why? @ -None Did you discuss the management of the patient with other professionals (professionals i.e. , PA, SPORTS LEADERSHIP INSTRUCTOR, lab, RT, psych nurse, social work instructor, infrastructure tech, teacher, fisheries enforcement officer, watch case polisher)? Give summary @ -No Was smoking cessation discussed for >3mins.? @ -No Was critical care preformed (if so, how long)? @ -No Were there social determinants of health that impacted care today? How? (Homelessness, low income, unemployed, alcoholism, drug addiction, tr ansportation, low edu. Level, literacy, decrease access to med. care, [facility], rehab)? @ -No Was there de-escalation of care discussed even if they declined (Discuss DNR or withdrawal of care, Hospice)? DNR status @ -No What co-morbidities impacted this encounter? (DM, HTN, Smoking, COPD, CAD, Cancer, CVA, ARF, Chemo, Hep., AIDS, mental health diagnosis, sleep apnea, morbid obesity)? @ -None Was patient admitted / discharged? Hospital course, mention meds given and route, prescriptions, significant lab abnormalities, going to OR and other pertinent info. @ -77-year-old female presents to the emergency department after syncopal episode. She's been battling diarrhea episodes for second half of today. Vital signs upon arrival are within acceptable limits. Laboratory evaluation is unremarkable. EKGs negative. CT imaging is negative. Laceration repaired by mid-level provider. Patient reevaluated at bedside 11 PM found to be similar condition. Patient and motor without complications. Patient discharged. Cause of syncope likely vasovagal treated by diarrhea Undiagnosed new problem with uncertain prognosis? @ -No Drug Therapy requiring intensive monitoring for toxicity (Heparin, Nitro, Insuli n, Cardizem)? @ -No Were any procedures done? @ -No Diagnosis/symptom? Acute, or Chronic, or Acute on Chronic? Uncomplicated (without systemic symptoms) or Complicated (systemic symptoms)? @ -Syncope Side effects of treatment? @ -No Exacerbation, Progression, or Severe Exacerbation? @ -No Poses a threat to life or bodily function? How? (Chest pain, [place], [place], pneumonia, PE, COPD, DKA, ARF, appy, cholecystitis, CVA, Diverticulitis, Homicidal, Suicidal, threat to staff... and all critical care pts) @ -Yes (James Rivero) - Lab Data Lab Results 02/15/23 02/15/23 02/15/23 Range/Units 21:52 21:52 21:52 WBC 7.3 (3.8-10.6) k/uL RBC 4.85 (3.80-5.40) m/uL Hgb 14.5 (11.4-16.0) gm/dL Hct 45.6 (34.0-46.0) % MCV 94.0 (80.0-100.0) fL MCH 29.8 (25.0-35.0) pg MCHC 31.8 (31.0-37.0) g/dL RDW 12.7 (11.5-15.5) % Plt Count 157 (150-450) k/uL MPV 7.8 Neutrophils % 82 % Lymphocytes % 10 % Monocytes % 5 % Eosinophils % 2 % Basophils % 0 % Neutrophils # 6.1 (1.3-7.7) k/uL Lymphocytes # 0.7 L (1.0-4.8) k/uL Monocytes # 0.4 (0-1.0) k/uL Eosinophils # 0.1 (0-0.7) k/uL Basophils # 0.0 (0-0.2) k/uL Sodium 137 (137-145) mmol/L Potassium 3.6 (3.5-5.1) mmol/L Chloride 105 (98-107) mmol/L Carbon Dioxide 26 (22-30) mmol/L Anion Gap 6 mmol/L BUN 16 (7-17) mg/dL Creatinine 0.65 (0.52-1.04) mg/dL Est GFR (CKD-EPI)AfAm >90 (>60 ml/min/1.73 sqM) Est GFR (CKD-EPI)NonAf 87 (>60 ml/min/1.73 sqM) Glucose 107 H (74-99) mg/dL Calcium 8.7 (8.4-10.2) mg/dL Magnesium 2.1 (1.6-2.3) mg/dL Troponin I <0.012 (0.000-0.034) ng/mL Disposition <Haile Mcnamara - Last Filed: 02/16/23 00:00> Is patient prescribed a controlled substance at d/c from ED?: No Time of Disposition: 05:35 <James Rivero - Last Filed: 02/16/23 05:36> Clinical Impression: Vasovagal syncope Disposition: HOME SELF-CARE Condition: Stable Referrals: Mele Young MD [Primary Care Provider] - 1-2 days
--- NOTE | 2023-02-15 22:26 | CT ---
EXAMINATION TYPE: CT brain cspine wo con CT DLP: 1315.6 mGycm, Automated exposure control for dose reduction was used. DATE OF EXAM: 02/15/2023 9:48 PM COMPARISON: 12/14/2015 CLINICAL INDICATION:Female, 77 years old with history of fall; TECHNIQUE: Brain: Multiple axial CT images of the brain were obtained without IV contrast. Cspine: Axial CT images from the skull base to the inferior aspect of T2 we obtained without intraven ous contrast. Coronal and sagittal reformatted images were also reviewed. FINDINGS: Brain: Extra-axial spaces: No abnormal extra-axial fluid collections. Ventricular system: Dilatation in proportion to cerebral atrophy. Cerebral parenchyma: Cerebral atrophy. No acute intraparenchymal hemorrhage or mass effect. The hopper -white junction is well differentiated. Scattered hypoattenuating areas are seen within the white mat ter. Cerebellum: Unremarkable. Mass effect: No evidence of midline shift. Intracranial vasculature: Atherosclerotic calcifications of the intracranial vessels. Soft tissues: The frontal scalp edema Calvarium/osseous structures: No depressed skull fracture. Paranasal sinuses and mastoid air cells: Clear. Visualized orbits: Orbital contents are intact. Cervical spine: Fracture: None. Osseous structures: Multilevel degenerative disc disease changes with endplate spurring and disc oste ophyte complex's. Bifid spinous process of T2. Vertebral alignment: Within normal limits. Spinal canal/Neural Foramina: Disc osteophyte complexes at C4-C5 and C5-C6 with at least mild spinal canal stenosis. No evidence for significant neural foraminal stenosis. Neck soft tissues: Prevertebral soft tissues are within normal limits. Other: The airway is patent. Atherosclerosis at the carotid bifurcations. Moderate centrilobular emph ysema changes. Surgical clips in the left neck. Possibly secondary to endarterectomy changes. IMPRESSION: 1. No acute intracranial process. 2. Nonspecific white matter changes, likely secondary to chronic small vessel ischemic disease. 3. No evidence of cervical spine fracture. 4. Mild multilevel degenerative disc disease. 5. Severe carotid artery atherosclerosis. 6. Left frontal scalp edema. 7. Moderate emphysema changes.
[2023-02-15 22:36] LABS: Basophils % (A) 0 %; Eosinophils # (A) 0.1 k/uL (0-0.7); Eosinophils % (A) 2 %; HCT 45.6 % (34.0-46.0); HGB 14.5 gm/dL (11.4-16.0); Lymphocytes # (A) 0.7 k/uL (1.0-4.8); Lymphocytes % (A) 10 %; MCH 29.8 pg (25.0-35.0); MCHC 31.8 g/dL (31.0-37.0); Mean Platelet Volume 7.8; Monocytes # (A) 0.4 k/uL (0-1.0); Monocytes % (A) 5 %; Neutrophils # (A) 6.1 k/uL (1.3-7.7); Neutrophils % (A) 82 %; Platelet Count 157 k/uL (150-450); RBC 4.85 m/uL (3.80-5.40); RDW 12.7 % (11.5-15.5); WBC 7.3 k/uL (3.8-10.6)
[2023-02-15 22:45] LABS: African American GFR (CKD) >90 (>60 ml/min/1.73 sqM); Anion Gap 6 mmol/L; Blood Urea Nitrogen 16 mg/dL (7-17); Calcium 8.7 mg/dL (8.4-10.2); Carbon Dioxide 26 mmol/L (22-30); Chloride 105 mmol/L (98-107); Glucose 107 mg/dL (74-99); Magnesium 2.1 mg/dL (1.6-2.3); Non-African American GFR(CKD) 87 (>60 ml/min/1.73 sqM); Potassium 3.6 mmol/L (3.5-5.1); Sodium 137 mmol/L (137-145)
[2023-02-15] MEDS ORDERED: BACITRACIN OINT 1 EACH PACKET TOPICAL ONE (23:58)
[2023-02-16 00:12] VITALS: BP 187/100; PULSE 81
== END 2023-02-16 00:13 | disposition home or self-care (01) ==
LOC: EC 20:34
DX: S01.112A Laceration without foreign body of left eyelid and periocular area, initial encounter (principal); R55 Syncope and collapse; E78.5 Hyperlipidemia, unspecified; I10 Essential (primary) hypertension; Z87.891 Personal history of nicotine dependence; Z88.0 Allergy status to penicillin; Z79.899 Other long term (current) drug therapy; W19.XXXA Unspecified fall, initial encounter; Y92.019 Unspecified place in single-family (private) house as the place of occurrence of the external cause
CPT/HCPCS: 12014; 36415; 70450; 72125; 80048; 83735; 84484; 85025; 93005; 96360; 99285

== ENCOUNTER 2023-02-21 16:49 | Emergency (ER) | payer MEDICARE ==
[2023-02-21 16:55] VITALS: TEMP 98
--- NOTE | 2023-02-21 17:15 | ED ---
General Adult HPI - General Chief complaint: Recheck/Abnormal Lab/Rx Stated complaint: HTN Time Seen by Provider: 02/21/23 16:59 Source: patient, RN notes reviewed Mode of arrival: ambulatory Limitations: no limitations - History of Present Illness Initial comments: This is a 77-year-old female presents complaining of hypertension. Patient here with her sister. Patient went to her primary care physician's office today to have sutures removed from her left supraorbital area. At times she had blood pressure taken which was in excess of 220/110. She was advised to come to the emergency department. Patient had a syncopal episode on February 15 and was seen here. Patient had blood work and imaging done to include a computed tomography scan of the brain and cervical spine. Patient states she's had a few mild headache since bumping her head during the syncopal episode last week. No current headache. No chest pain. No shortness of breath. No focal weakness. No numbness or tingling. No dizziness. No subsequent syncopal episodes. Patient states she was at her sister's house and went to the bathroom. Patient states she stood up, STRUCK HER HEAD A PORCELAIN VANITY. AGAIN, NO SUBSEQUENT HEAD INJURIES OR SYNCOPAL EPISODES. PATIENT ESSENTIALLY ASYMPTOMATIC. PATIENT DID HAVE THE SUTURES REMOVED AT THE PRIMARY CARE PHYSICIAN'S OFFICE. - Related Data Home Medications Medication Instructions Recorded Confirmed Acetaminophen Tab [Tylenol] 1,000 mg PO Q6H PRN 11/19/20 11/16/22 Cholecalciferol [Vitamin D3 (125 125 mcg PO Q48H 11/16/22 11/16/22 Mcg = 5000 Iu)] lisinopriL [Zestril] 10 mg PO DAILY 11/16/22 11/16/22 Previous Rx's Medication Instructions Recorded carvediloL [Coreg] 6.25 mg PO BID-W/MEALS #60 tab 11/18/22 lisinopriL [Prinivil] 10 mg PO DAILY #30 tab 11/18/22 hydroCHLOROthiazide 12.5 mg PO DAILY #15 cap 02/21/23 Allergies Allergy/AdvReac Type Severity Reaction Status Date / Time Penicillins Allergy Rash/Hives Verified 02/21/23 16:56 Review of Systems ROS Statement: Those systems with pertinent positive or pertinent negative responses have been documented in the HPI. ROS Other: All systems not noted in ROS Statement are negative. Past Medical History Past Medical History: Cancer, Hyperlipidemia, Hypertension Additional Past Medical History / Comment(s): mouth and throat CANCER History of Any Multi-Drug Resistant Organisms: None Reported Past Surgical History: Back Surgery Additional Past Surgical History / Comment(s): COLONOSCOPY, EAR SX, Past Anesthesia/Blood Transfusion Reactions: No Reported Reaction Past Psychological History: No Psychological Hx Reported Smoking Status: Former smoker Past Alcohol Use History: None Reported Past Drug Use History: None Reported - Past Family History Mother Family Medical History: Hypertension General Exam - General Exam Comments Initial Comments: Patient does not appear to be ill or toxic. Cranial nerves II through XII are intact. Alert and oriented 4. Current blood pressure 183/90. Remainder of vital signs are stable. Limitations: no limitations General appearance: alert, in no apparent distress Head exam: Present: atraumatic, normocephalic, normal inspection Eye exam: Present: normal appearance, PERRL, EOMI, other (Bruising noted just above the left eye. Extraocular movements intact. Incision appears to be healing well. Steri-Strips in place. No evidence of drainage, dehiscence, erythema.). Absent: scleral icterus, conjunctival injection, periorbital swelling ENT exam: Present: normal exam, normal oropharynx, mucous membranes moist, TM's normal bilaterally, normal external ear exam. Absent: mucous membranes dry Neck exam: Present: normal inspection. Absent: tenderness, meningismus, lymphadenopathy Respiratory exam: Present: normal lung sounds bilaterally. Absent: respiratory distress, wheezes, rales, rhonchi, stridor Cardiovascular Exam: Present: regular rate, normal rhythm, normal heart sounds. Absent: systolic murmur, diastolic murmur, rubs, gallop, clicks GI/Abdominal exam: Present: soft, normal bowel sounds. Absent: distended, tenderness, guarding, rebound, rigid Extremities exam: Present: normal inspection, full ROM, normal capillary refill. Absent: tenderness, pedal edema, joint swelling, calf tenderness Back exam: Present: normal inspection Neurological exam: Present: alert, oriented X3, CN II-XII intact, normal gait. Absent: motor sensory deficit, reflexes normal Psychiatric exam: Present: normal affect, normal mood Skin exam: Present: warm, dry, intact, normal color. Absent: rash Course Vital Signs 02/21/23 16:52 Temperature 98.0 F Pulse Rate 59 L Respiratory 20 Rate Blood Pressure 183/90 O2 Sat by Pulse 95 Oximetry - Reevaluation(s) Reevaluation #1: 02/21/23 17:33 EKG independently interpreted by me at 1720 reveals sinus bradycardia with a rate of 55. Short [place] interval at 112 ms. Normal axis, no acute ST or T-wave changes. No ST elevation. Patient does have a hint of ST depression in V5 and V6, however this is less than 1 box. Appears to be very similar to the previous EKG on 02/15/2023. No significant change. Reevaluation #2: 02/21/23 17:48 Patient reevaluated, resting,. Reevaluation #3: 02/21/23 18:21 X-ray shows no acute cardiopulmonary process. No effusion. No cardiomegaly. No pneumothorax. No infiltrate. Reviewed radiology interpretation Medical Decision Making - Medical Decision Making Was pt. sent in by a medical professional or institution? @ -[Sent in by the primary care physician's office, Dr. Young for hypertension] Did you speak to anyone other than the patient for history? @ -Patient's sister in the room providing additional details of the recent history. Did you review nursing and triage notes? @ -3, although the patient has no current headache. Were old charts reviewed? @ -Reviewed charts from previous visit on February 15 from the patient's syncopal episode with subsequent head injury. Differential Diagnosis? @ -Uncontrolled hypertension, other causes of hypertension such as cardiac disease, congestive heart failure, renal disease, renal artery stenosis all within the differential. This is not all-inclusive list. Patient in no distress. Does not appear to be consistent with CHF exacerbation or symptomology. Not consistent with cardiovascular disease as the patient does not have chest pain. No edema. Patient has no problems urinating. Unlikely to be renal disease. No abdominal pain. Unlikely vascular disease. Patient did have carotid artery atherosclerosis which was quite severe noted on the CT scan imaging from the previous visit. Patient be referred for vascular surgery. Patient has no neurologic deficits here today. EKG interpreted by me (3pts min.)? @ -See ER course, interpreted by me. X-rays interpreted by me (1pt min.)? @ -The ER course, interpreted by me CT interpreted by me (1pt min.)? @ -[none] U/S interpreted by me (1pt. min.)? @ -[none] What testing was considered but not performed? (CT, X-rays, U/S, labs)? Why? @ No additional tests considered What meds were considered but not given? Why? @ -I did consider clonidine. However after medical decision-making, I felt that hydrochlorothiazide was more appropriate given the patient's medication regimen. Currently on lisinopril and carvedilol. Did you discuss the management of the patient with other professionals? @ -The case was discussed in detail with ED attending physician. Presentation, findings, treatment plan discussed in detail. Discussed with Dr. Means Did you reconcile home meds? @ -[none] Was smoking cessation discussed for >3mins.? @ -Former cigarette smoker, not currently Was critical care preformed (if so, how long)? @ -[none] Were there social determinants of health that impacted care today? How? (Homelessness, low income, unemployed, alcoholism, drug addiction, [employer] sportation, low edu. Level, literacy, decrease access to med. care, longterm, rehab)? @ -No obvious impediments Was there de-escalation of care discussed even if they declined? (Discuss DNR or withdrawal of care, Hospice)? @ -Not applicable What co-morbidities impacted this encounter? (DM, HTN, Smoking, COPD, CAD, Cancer, CVA, Hep., AIDS, mental health diagnosis, sleep apnea, morbid obesity)? @ -Chronic hypertension Was patient admitted / discharged? @ -Discharged Undiagnosed new problem with uncertain prognosis? @ -[none] Drug Therapy requiring intensive monitoring for toxicity (Heparin, Nitro, Insulin, Cardizem)? @ -[none] Were any procedures done? @ -[none] Diagnosis/symptom? @ -Uncontrolled hypertension, carotid artery atherosclerosis, both chronic Acute, or Chronic, or Acute on Chronic? @ -Chronic Uncomplicated (without systemic symptoms) or Complicated (systemic symptoms)? @ -Uncomplicated, unlikely to cause any acute harm to bodily function in life. Side effects of treatment? @ -[none] Exacerbation, Progression, or Severe Exacerbation] @ -Exacerbation of chronic hypertension Poses a threat to life or bodily function? @ -Unlikely to be immediate, but certainly could be if not controlled in the long-term. Patient was told to return to the ER for any signs or symptoms worsen. Told to return immediately if any other problems arise. All questions answered. Treatment plan discussed. Patient in agreement Every effort has been made to ensure accuracy of this dictation. However, due to the limitations of electronic medical records and dictation devices, errors in charting still occur. Discussed treatment plan in detail with the patient and her sister. [place] chlorothiazide 12.5 mg daily ordered. Patient has an appointment with her primary care physician on Friday. We'll have her follow up as planned. Patient left in no acute distress. Current blood pressure 189/63 1 hours in the room. Patient asymptomatic. - Lab Data Result diagrams: 02/21/23 17:45 02/21/23 17:45 Lab Results 02/21/23 02/21/23 02/21/23 Range/Units 17:45 17:45 17:45 WBC 3.8 (3.8-10.6) k/uL RBC 4.67 (3.80-5.40) m/uL Hgb 14.3 (11.4-16.0) gm/dL Hct 44.0 (34.0-46.0) % MCV 94.2 (80.0-100.0) fL MCH 30.6 (25.0-35.0) pg MCHC 32.5 (31.0-37.0) g/dL RDW 12.8 (11.5-15.5) % Plt Count 169 (150-450) k/uL MPV 7.4 Neutrophils % 60 % Lymphocytes % 26 % Monocytes % 7 % Eosinophils % 4 % Basophils % 1 % Neutrophils # 2.3 (1.3-7.7) k/uL Lymphocytes # 1.0 (1.0-4.8) k/uL Monocytes # 0.3 (0-1.0) k/uL Eosinophils # 0.2 (0-0.7) k/uL Basophils # 0.0 (0-0.2) k/uL Sodium 138 (137-145) mmol/L Potassium 3.7 (3.5-5.1) mmol/L Chloride 102 (98-107) mmol/L Carbon Dioxide 32 H (22-30) mmol/L Anion Gap 4 mmol/L BUN 14 (7-17) mg/dL Creatinine 0.60 (0.52-1.04) mg/dL Est GFR (CKD-EPI)AfAm >90 (>60 ml/min/1.73 sqM) Est GFR (CKD-EPI)NonAf 89 (>60 ml/min/1.73 sqM) Glucose 125 H (74-99) mg/dL Calcium 8.8 (8.4-10.2) mg/dL Magnesium 2.0 (1.6-2.3) mg/dL Total Bilirubin 0.6 (0.2-1.3) mg/dL AST 23 (14-36) U/L ALT 14 (4-34) U/L Alkaline Phosphatase 59 (38-126) U/L Troponin I <0.012 (0.000-0.034) ng/mL NT-Pro-B Natriuret Pep pg/mL Total Protein 6.3 (6.3-8.2) g/dL Albumin 3.8 (3.5-5.0) g/dL 02/21/23 Range/Units 17:45 WBC (3.8-10.6) k/uL RBC (3.80-5.40) m/uL Hgb (11.4-16.0) gm/dL Hct (34.0-46.0) % MCV (80.0-100.0) fL MCH (25.0-35.0) pg MCHC (31.0-37.0) g/dL RDW (11.5-15.5) % Plt Count (150-450) k/uL MPV Neutrophils % % Lymphocytes % % Monocytes % % Eosinophils % % Basophils % % Neutrophils # (1.3-7.7) k/uL Lymphocytes # (1.0-4.8) k/uL Monocytes # (0-1.0) k/uL Eosinophils # (0-0.7) k/uL Basophils # (0-0.2) k/uL Sodium (137-145) mmol/L Potassium (3.5-5.1) mmol/L Chloride (98-107) mmol/L Carbon Dioxide (22-30) mmol/L Anion Gap mmol/L BUN (7-17) mg/dL Creatinine (0.52-1.04) mg/dL Est GFR (CKD-EPI)AfAm (>60 ml/min/1.73 sqM) Est GFR (CKD-EPI)NonAf (>60 ml/min/1.73 sqM) Glucose (74-99) mg/dL Calcium (8.4-10.2) mg/dL Magnesium (1.6-2.3) mg/dL Total Bilirubin (0.2-1.3) mg/dL AST (14-36) U/L ALT (4-34) U/L Alkaline Phosphatase (38-126) U/L Troponin I (0.000-0.034) ng/mL NT-Pro-B Natriuret Pep 984 pg/mL Total Protein (6.3-8.2) g/dL Albumin (3.5-5.0) g/dL Disposition Clinical Impression: Hypertension, poor control, Carotid atherosclerosis Disposition: HOME SELF-CARE Condition: Good Instructions (If sedation given, give patient instructions): Hypertension (ED), Carotid Artery Disease (DC) Additional Instructions: Take the blood pressure medication as directed. Follow-up with your regular doctor Friday as planned. Usual likely need a referral to the vascular surgeon. Your primary care physician first. I provided the name of the vascular surgeon in your discharge instructions. Follow-up with your regular physician as directed. Return to the ER immediately if any symptoms worsen, new symptoms arise, or any other problems develop. Is patient prescribed a controlled substance at d/c from ED?: No Referrals: Mele Young MD [Primary Care Provider] - 02/24/23 Time of Disposition: 18:28
[2023-02-21 17:52] LABS: Basophils % (A) 1 %; Eosinophils # (A) 0.2 k/uL (0-0.7); Eosinophils % (A) 4 %; HGB 14.3 gm/dL (11.4-16.0); Lymphocytes % (A) 26 %; MCH 30.6 pg (25.0-35.0); MCHC 32.5 g/dL (31.0-37.0); MCV 94.2 fL (80.0-100.0); Mean Platelet Volume 7.4; Monocytes # (A) 0.3 k/uL (0-1.0); Monocytes % (A) 7 %; Neutrophils # (A) 2.3 k/uL (1.3-7.7); Neutrophils % (A) 60 %; Platelet Count 169 k/uL (150-450); RBC 4.67 m/uL (3.80-5.40); RDW 12.8 % (11.5-15.5); WBC 3.8 k/uL (3.8-10.6)
[2023-02-21 18:03] LABS: ALT 14 U/L (4-34); AST 23 U/L (14-36); African American GFR (CKD) >90 (>60 ml/min/1.73 sqM); Albumin 3.8 g/dL (3.5-5.0); Alkaline Phosphatase 59 U/L (38-126); Anion Gap 4 mmol/L; Blood Urea Nitrogen 14 mg/dL (7-17); Calcium 8.8 mg/dL (8.4-10.2); Carbon Dioxide 32 mmol/L (22-30); Chloride 102 mmol/L (98-107); Glucose 125 mg/dL (74-99); Non-African American GFR(CKD) 89 (>60 ml/min/1.73 sqM); Potassium 3.7 mmol/L (3.5-5.1); Sodium 138 mmol/L (137-145); Total Bilirubin 0.6 mg/dL (0.2-1.3); Total Protein 6.3 g/dL (6.3-8.2)
--- NOTE | 2023-02-21 18:17 | XR ---
EXAMINATION TYPE: XR chest 1V portable DATE OF EXAM: 02/21/2023 6:09 PM COMPARISON: Chest radiographs from11/14/2022 TECHNIQUE: XR chest 1V portable Frontal view of the chest. CLINICAL INDICATION:Female, 77 years old with history of chest pain; FINDINGS: Lungs/Pleura: Prominent interstitial lung markings are seen scattered throughout the lungs with manine ening of the diaphragm and increased lucency of the lung apices. No evidence of focal consolidation, pneumothorax or pleural effusion. Pulmonary vascularity: Unremarkable. Heart/mediastinum: Cardiomediastinal silhouette is unremarkable. Musculoskeletal: No acute osseous pathology. IMPRESSION: 1. No acute cardiopulmonary disease process. 2. COPD changes.
[2023-02-21] MEDS ORDERED: hydroCHLOROthiazide 12.5 MG CAP PO STA (18:20)
[2023-02-21 18:29] VITALS: RESP 16
[2023-02-21 18:49] VITALS: BP 200/90; PULSE 54
== END 2023-02-21 18:49 | disposition home or self-care (01) ==
LOC: EC 16:49
DX: I10 Essential (primary) hypertension (principal); I77.9 Disorder of arteries and arterioles, unspecified; J44.9 Chronic obstructive pulmonary disease, unspecified; Z79.899 Other long term (current) drug therapy; Z87.891 Personal history of nicotine dependence; Z88.0 Allergy status to penicillin
CPT/HCPCS: 36415; 71045; 80053; 83735; 83880; 84484; 85025; 93005; 99284

== ENCOUNTER → 2023-04-01 | Outpatient (CLI) | payer MEDICARE ==
--- NOTE | 2023-04-01 15:01 | US ---
EXAMINATION TYPE: US carotid duplex BILAT DATE OF EXAM: 04/01/2023 COMPARISON: NONE CLINICAL INDICATION: Female, 77 years old with history of I65.29 OCCLUSION AND STENOSIS OF UNSPECIFIE D CAROT; dizziness and syncope Exam limitations patient had throat CA lump and scarring from radiatio n. TECHNIQUE: Carotid duplex ultrasound examination. Indirect Doppler criteria was utilized. FINDINGS: EXAM MEASUREMENTS: RIGHT: Peak Systolic Velocity (PSV) cm/sec ----- Right CCA: 59 ----- Right ICA: 83.7 ----- Right ECA: 98.2 ICA/CCA ratio: 1.4 RIGHT: End Diastole cm/sec ----- Right CCA: 11 ----- Right ICA: 22.7 ----- Right ECA: 16.9 LEFT: Peak Systolic Velocity (PSV) cm/sec ----- Left CCA: 125.8 ----- Left ICA: 318.8 ----- Left ECA: 141 ICA/CCA ratio: 2.5 LEFT: End Diastole cm/sec ----- Left CCA: 31.4 ----- Left ICA: 95.7 ----- Left ECA: 18.1 VERTEBRALS (direction of flow): Right Vertebral: Antegrade Left Vertebral: Antegrade Rhythm: Normal [employer]ER DELIVERER NOTES: Bilateral plaque visualized. IMPRESSION: Heavy plaque burden on the left with measurements indicating a hemodynamically significant, severe le ft ICA stenosis. Criteria for Assigning % of Stenosis / Diameter reduction (Estimation based on the indirect measurements of the internal carotid artery velocities (ICA PSV). 1. Normal (no stenosis)=ICA PSV < 125 cm/s: ratio < 2.0: ICA EDV<40 cm/s. 2. Less than 50% stenosis=ICA PSV < 125 cm/s: ratio < 2.0: ICA EDV<40 cm/s. 3. 50 to 69% stenosis=ICA PSV of 125 to 230 cm/s: ration 2.0 ? 4.0: ICA EDV 40-100 cm/s. 4. Greater than 70% stenosis to near occlusion= ICA PSV > 230 cm/s: ratio > 4.0: ICA EDV > 100 cm/s. 5. Near occlusion= ICA PSV velocities may be low or undetectable: variable ratio and ICA EDV. 6. Total occlusion=unable to detect flow.
== END | disposition home or self-care (01) ==
LOC: RADUSWWP 10:38
PROVIDERS: ATTEND Family Medicine
DX: I65.23 Occlusion and stenosis of bilateral carotid arteries (principal)
CPT/HCPCS: 93880

== ENCOUNTER → 2023-06-12 | Outpatient (CLI) | payer MEDICARE ==
[2023-06-12 14:22] LABS: African American GFR (CKD) >90 (>60 ml/min/1.73 sqM); Blood Urea Nitrogen 19 mg/dL (7-17); Non-African American GFR(CKD) >90 (>60 ml/min/1.73 sqM)
--- NOTE | 2023-06-13 09:28 | CT ---
EXAMINATION TYPE: CT angio neck DATE OF EXAM: 06/12/2023 3:01 PM CLINICAL INDICATION:Female, 77 years old with history of I65.29 OCCLUSION AND STENOSIS; carotid steno sis COMPARISON: 02/15/2023. TECHNIQUE: Axially acquired helical CT Angiogram of the Neck was obtained with and without contrast u tilizing 75 mL of Isovue-370 administered intravenously. Axial images are supplemented with coronal a nd sagittal MIP reconstructions. 3D reconstructions were also performed and were post-processed at an independent workstation. Estimated carotid stenosis was calculated using the NASCET criteria. CT DLP: 195.8 mGycm, Automated exposure control for dose reduction was used. Contrast used:100 mL of Isovue 370 with IV Contrast, Oral contrast used: , None. FINDINGS: CTA NECK: Right Carotid System: The common carotid and external carotid arteries are patent. There is approximately 25% stenosis at t he carotid bifurcation secondary to calcified/noncalcified plaquing. The rest of the internal carotid artery is patent. Left Carotid System: The common carotid and external carotid arteries are patent. There is approximately 25% stenosis at t he carotid bifurcation secondary to calcified/noncalcified plaquing. The rest of the internal carotid artery is patent. Vertebral arteries are patent without evidence hemodynamically significant stenosis. Right dominant v ertebral artery. There is a three-vessel aortic arch. The origins of the great vessels are patent. No evidence of hemo dynamically significant stenosis. Upper thorax: Moderate to severe paraseptal emphysema changes. IMPRESSION: 1. Less than 50% stenosis of bilateral carotid bifurcations with extensive calcified and noncalcified plaque within the common carotid arteries and extending into the proximal internal carotid arteries. 2. No evidence of dissection of the cervical internal carotid arteries or vertebral arteries.
== END | disposition home or self-care (01) ==
LOC: RADCTMAIN 13:19
PROVIDERS: ATTEND Surgery
DX: I65.23 Occlusion and stenosis of bilateral carotid arteries (principal)
CPT/HCPCS: 82565; 84520; 70498; 36415; Q9967

== ENCOUNTER → 2024-03-26 | Day surgery (SDC) | payer MEDICARE ==
[2024-03-23 16:13] VITALS: BMI 22.3
[~2024-03-26] MED LIST: LACTATED RINGERS 1,000 ML IV SCH; LIDOCAINE 1% (10MG/ML) FOR IV START INTRADERMA PRN; PROPOFOL 10 MG/ML 20 ML VIAL IV ONE
[2024-03-26] MEDS: IV FLUID CONTINUATION 1,000 ML IV ONE (14:17)
[2024-03-26 14:22] VITALS: TEMP 96.8
--- NOTE | 2024-03-26 15:15 | P.PCN ---
Date of Procedure: 03/26/24 Procedure(s) Performed: BRIEF HISTORY: Patient is a []-year-old, pleasant, white female scalp and upper endoscopy as a part evaluation of intermittent dysphagia to solids for the last 10 years duration. Patient states that she was diagnosed with throat cancer several years ago and underwent radiation therapy.. PROCEDURE PERFORMED: Esophagogastroduodenoscopy with dilation. PREOPERATIVE DIAGNOSIS: Dysphagia to solids of 10 years duration. IV sedation per anesthesia. PROCEDURE: After informed consent was obtained, the patient was brought into the endoscopy unit. IV sedation was administered by Anesthesia under continuous monitoring. Initially the Olympus GIF-140 video endoscope was inserted into the mouth. Esophagus intubated without any difficulty. It was gradually advanced into the stomach and duodenum and carefully examined. The bulb and the second part of the duodenum appeared normal. The scope at this time was withdrawn to the stomach, adequately insufflated with air, and upon careful examination, mucosa of the antrum, body, cardia and the fundus appeared normal. The scope was then withdrawn into the esophagus. Small hiatal hernia noted. The GE junction was located at 39 cm from the incisors. There was a distal esophageal stricture noted which was dilated using 12 to 13.5 mm TTS balloon for 60 seconds and there was small amount of oozing noted after dilation. There were linear erosions noted in the distal esophagus consistent with LA grade B reflux esophagitis. The rest of the esophagus appeared normal. There were no erosions or ulcerations seen and the patient tolerated the procedure well. IMPRESSION: 1. Distal esophageal stricture status post balloon dilation using 12 and 13.5 mm TTS balloon as described above. 2. Small hiatal hernia 3. Linear erosions in the distal esophagus consistent with LA grade B reflux esophagitis. RECOMMENDATIONS: The findings of this examination were discussed with the patient as well as her family. She was advised to be on clear liquids for 2 hours. Start on omeprazole 20 mg daily and follow antireflux measures. Follow- up in the office in 3 months..
[2024-03-26 15:20] VITALS: RESP 16
[2024-03-26 15:39] VITALS: BP 149/61; PULSE 66
== END ==
LOC: ORWHC2ENDO 12:48
PROVIDERS: ATTEND Internal Medicine Gastroenterology
DX: K21.00 Gastro-esophageal reflux disease with esophagitis, without bleeding (principal); C32.9 Malignant neoplasm of larynx, unspecified; K44.9 Diaphragmatic hernia without obstruction or gangrene; I10 Essential (primary) hypertension; E78.5 Hyperlipidemia, unspecified; Z88.0 Allergy status to penicillin; Z79.899 Other long term (current) drug therapy
CPT/HCPCS: 43249; J2704; C1726

== ENCOUNTER 2024-06-12 13:24 | Emergency (ER) | payer MEDICARE ==
[2024-06-12 13:32] VITALS: TEMP 97.6
--- NOTE | 2024-06-12 13:56 | ED ---
General Adult HPI - General Chief complaint: Syncope Stated complaint: neck pain Time Seen by Provider: 06/12/24 13:44 Source: patient, family, RN notes reviewed Mode of arrival: wheelchair Limitations: no limitations - History of Present Illness Initial comments: 8-year-old female with past medical history of hyperlipidemia and hypertension presenting to the ER with chief complaint of syncope last night. States she was at her sister's house playing cards when she passed out in the hallway. She believes she fell onto her right side as she has hematoma on right temporal area, midline neck pain, and right shoulder pain. States she has had several bouts of diarrhea since dinner last night. Denies chest pain, shortness of breath, fever, chills. She has a history of vasovagal syncope during gastroenteritis. Denies blood thinners. - Related Data Home Medications Medication Instructions Recorded Confirmed Atorvastatin [Lipitor] 40 mg PO 1200 03/23/24 03/26/24 Multivitamins, Thera [Multivitamin 1 tab PO DAILY 03/23/24 03/26/24 (formulary)] amLODIPine BESYLATE/BENAZEPRIL 1 each PO QAM 03/23/24 03/26/24 [amLODIPine BESYLATE/BENAZEPRIL 5-40 mg] Previous Rx's Medication Instructions Recorded carvediloL [Coreg] 6.25 mg PO BID-W/MEALS #60 tab 11/18/22 Allergies Allergy/AdvReac Type Severity Reaction Status Date / Time Penicillins Allergy Rash/Hives Verified 03/26/24 14:22 Review of Systems ROS Statement: Those systems with pertinent positive or pertinent negative responses have been documented in the HPI. ROS Other: All systems not noted in ROS Statement are negative. Past Medical History Past Medical History: Cancer, Hyperlipidemia, Hypertension, Myocardial Infarction (UT) Additional Past Medical History / Comment(s): mouth and throat CANCER Last Myocardial Infarction Date:: UNK History of Any Multi-Drug Resistant Organisms: None Reported Past Surgical History: Back Surgery, Heart Catheterization Additional Past Surgical History / Comment(s): COLONOSCOPY, EAR SX Past Anesthesia/Blood Transfusion Reactions: No Reported Reaction Past Psychological History: No Psychological Hx Reported Smoking Status: Former smoker Past Alcohol Use History: None Reported Past Drug Use History: None Reported - Past Family History Mother Family Medical History: Hypertension General Exam Limitations: no limitations General appearance: alert, in no apparent distress Head exam: Present: normocephalic, other (Hematoma present on right temporal area) Eye exam: Present: normal appearance, PERRL, EOMI. Absent: scleral icterus, conjunctival injection, periorbital swelling ENT exam: Present: normal exam, mucous membranes moist Neck exam: Present: normal inspection. Absent: tenderness, meningismus, lymphadenopathy Respiratory exam: Present: normal lung sounds bilaterally. Absent: respiratory distress, wheezes, rales, rhonchi, stridor Cardiovascular Exam: Present: regular rate, normal rhythm, normal heart sounds. Absent: systolic murmur, diastolic murmur, rubs, gallop, clicks GI/Abdominal exam: Present: soft, normal bowel sounds. Absent: distended, ten derness, guarding, rebound, rigid Extremities exam: Present: normal inspection, full ROM, normal capillary refill. Absent: tenderness, pedal edema, joint swelling, calf tenderness Back exam: Present: normal inspection Neurological exam: Present: alert, oriented X3, CN II-XII intact Psychiatric exam: Present: normal affect, normal mood Skin exam: Present: warm, dry, intact, normal color. Absent: rash Course Vital Signs 06/12/24 06/12/24 13:29 15:32 Temperature 97.6 F Pulse Rate 63 79 Respiratory 20 17 Rate Blood Pressure 111/59 159/78 O2 Sat by Pulse 95 97 Oximetry EKG Findings - EKG Results: EKG: interpreted by ERMD (EKG reveals normal sinus rhythm with no ST changes. Ventricular rate 63 bpm, GA interval 135, QRS duration 92, QT/QTc 394/401) Medical Decision Making - Medical Decision Making Was pt. sent in by a medical professional or institution (, PA, CONTACT ACID PLANT OPERATOR HELPER, urgent care, hospital, or retirement...) When possible be specific @ -No Did you speak to anyone other than the patient for history (EMS, parent, family, police, friend...)? What history was obtained from this source @ -Patient's sister supplemented history Did you review nursing and triage notes (agree or disagree)? Why? @ -I reviewed and agree with nursing and triage notes Were old charts reviewed (outside hosp., previous admission, EMS record, old EKG, old radiological studies, urgent care reports/EKG's, retirement records)? Report findings @ -No old charts were reviewed Differential Diagnosis (chest pain, altered mental status, abdominal pain women, abdominal pain men, vaginal bleeding, weakness, fever, dyspnea, syncope, headache, dizziness, GI bleed, back pain, seizure, CVA, palpatations, mental health, musculoskeletal)? @ -Differential Syncope: Valvular disease, hypertrophic cardiomyopathy, pulmonary embolism, tamponade, tachycardia, bradycardia, UT, hypovolemia, hemorrhage, dissection, anemia, intracranial hemorrhage, seizure, hypoglycemia, carbon monoxide poisoning, this is not meant to be an all-inclusive list. EKG interpreted by me (3pts min.). @ -As above X-rays interpreted by me (1pt min.). @ -Chest x-ray and right shoulder x-ray interpreted by me reveals no acute proc ess CT interpreted by me (1pt min.). @ -CT head and neck reveals fracture through body of C2 and bilateral pars interarticularis without subluxation U/S interpreted by me (1pt. min.). @ -None done What testing was considered but not performed or refused? (CT, X-rays, U/S, labs)? Why? @ -None What meds were considered but not given or refused? Why? @ -None Did you discuss the management of the patient with other professionals (professionals i.e. , PA, CONTACT ACID PLANT OPERATOR HELPER, lab, RT, psych nurse, aids social worker, form maker plaster, teacher, k [employer] police officer, nurse outreach case manager)? Give summary @ -I spoke with Dr. Chavez on-call orthopedics who recommends transfer to [facility]. I then spoke with transfer team at [facility] who accepts patient as an ER to ER transfer Was smoking cessation discussed for >3mins.? @ -No Was critical care preformed (if so, how long)? @ -No Were there social determinants of health that impacted care today? How? (Homelessness, low income, unemployed, alcoholism, drug addiction, transportatio n, low edu. Level, literacy, decrease access to med. care, snf, rehab)? @ -No Was there de-escalation of care discussed even if they declined (Discuss DNR or withdrawal of care, Hospice)? DNR status @ -No What co-morbidities impacted this encounter? (DM, HTN, Smoking, COPD, CAD, Cancer, CVA, ARF, Chemo, Hep., AIDS, mental health diagnosis, sleep apnea, morbid obesity)? @ -None Was patient admitted / discharged? Hospital course, mention meds given and route, prescriptions, significant lab abnormalities, going to OR and other pertinent info. @ -Transferred. This is a 78-year-old female with history of hypertension and hyperlipidemia presenting for syncope last night with head injury. Denies thinners. She has also been experiencing diarrhea since dinner last night. She does have a history of vasovagal syncope with diarrhea. She is endorsing midline neck pain and right shoulder pain since the fall. Vital signs are within acceptable limits. On examination, there is a hematoma present on right temporal area. Tenderness to palpation of C-spine. CT head and neck revealed fracture through body of C2 and bilateral pars interarticularis without subluxation. Patient was placed in [place] c-collar. EKG reveals normal sinus rhythm no ST changes. Chest x-ray and right shoulder x-ray interpreted by me reveals no acute process. Lab work including CBC, CMP, troponin, lactic acid unremarkable. I spoke with Dr. Chavez on-call orthopedics who recommends transfer to [facility]. I then spoke with transfer team at [facility] who accepts patient as an ER to ER transfer for C2 fracture. Patient is agreeable to plan. Case was discussed with the ED attending Dr. Rasheed Undiagnosed new problem with uncertain prognosis? @ -No Drug Therapy requiring intensive monitoring for toxicity (Heparin, Nitro, Insulin, Cardizem)? @ -No Were any procedures done? @ -No Diagnosis/symptom? @ -Cervical fracture Acute, or Chronic, or Acute on Chronic? @ -Acute Uncomplicated (without systemic symptoms) or Complicated (systemic symptoms)? @ -Uncomplicated Side effects of treatment? @ -No Exacerbation, Progression, or Severe Exacerbation? @ -No Poses a threat to life or bodily function? How? (Chest pain, USA, UT, pneumonia, PE, COPD, DKA, ARF, appy, cholecystitis, CVA, Diverticulitis, Homicidal, Suicidal, threat to staff... and all critical care pts) @ -Yes - Lab Data Result diagrams: 06/12/24 13:51 06/12/24 13:51 Lab Results 06/12/24 06/12/24 06/12/24 Range/Units 13:51 13:51 13:51 WBC 10.5 (3.8-10.6) k/uL RBC 4.82 (3.80-5.40) m/uL Hgb 14.4 (11.4-16.0) gm/dL Hct 45.3 (34.0-46.0) % MCV 94.0 (80.0-100.0) fL MCH 29.9 (25.0-35.0) pg MCHC 31.8 (31.0-37.0) g/dL RDW 13.1 (11.5-15.5) % Plt Count 167 (150-450) k/uL MPV 7.6 Neutrophils % 87 % Lymphocytes % 6 % Monocytes % 5 % Eosinophils % 0 % Basophils % 0 % Neutrophils # 9.2 H (1.3-7.7) k/uL Lymphocytes # 0.7 L (1.0-4.8) k/uL Monocytes # 0.5 (0-1.0) k/uL Eosinophils # 0.0 (0-0.7) k/uL Basophils # 0.0 (0-0.2) k/uL Sodium 140 (137-145) mmol/L Potassium 4.3 (3.5-5.1) mmol/L Chloride 108 H (98-107) mmol/L Carbon Dioxide 26 (22-30) mmol/L Anion Gap 6 mmol/L BUN 20 H (7-17) mg/dL Creatinine 0.56 (0.52-1.04) mg/dL Est GFR (CKD-EPI)AfAm >90 (>60 ml/min/1.73 sqM) Est GFR (CKD-EPI)NonAf >90 (>60 ml/min/1.73 sqM) Glucose 132 H (74-99) mg/dL Plasma Lactic Acid [place] 1.5 (0.7-2.0) mmol/L Calcium 9.2 (8.4-10.2) mg/dL Total Bilirubin 1.7 H (0.2-1.3) mg/dL AST 50 H (14-36) U/L ALT 30 (4-34) U/L Alkaline Phosphatase 94 (38-126) U/L Troponin I (0.000-0.034) ng/mL Total Protein 6.6 (6.3-8.2) g/dL Albumin 4.0 (3.5-5.0) g/dL Influenza Type A (PCR) (Not Detectd) Influenza Type B (PCR) (Not Detectd) RSV (PCR) (Not Detectd) SARS-CoV-2 (PCR) (Not Detectd) 06/12/24 06/12/24 Range/Units 13:51 14:00 WBC (3.8-10.6) k/uL RBC (3.80-5.40) m/uL Hgb (11.4-16.0) gm/dL Hct (34.0-46.0) % MCV (80.0-100.0) fL MCH (25.0-35.0) pg MCHC (31.0-37.0) g/dL RDW (11.5-15.5) % Plt Count (150-450) k/uL MPV Neutrophils % % Lymphocytes % % Monocytes % % Eosinophils % % Basophils % % Neutrophils # (1.3-7.7) k/uL Lymphocytes # (1.0-4.8) k/uL Monocytes # (0-1.0) k/uL Eosinophils # (0-0.7) k/uL Basophils # (0-0.2) k/uL Sodium (137-145) mmol/L Potassium (3.5-5.1) mmol/L Chloride (98-107) mmol/L Carbon Dioxide (22-30) mmol/L Anion Gap mmol/L BUN (7-17) mg/dL Creatinine (0.52-1.04) mg/dL Est GFR (CKD-EPI)AfAm (>60 ml/min/1.73 sqM) Est GFR (CKD-EPI)NonAf (>60 ml/min/1.73 sqM) Glucose (74-99) mg/dL Plasma Lactic Acid [place] (0.7-2.0) mmol/L Calcium (8.4-10.2) mg/dL Total Bilirubin (0.2-1.3) mg/dL AST (14-36) U/L ALT (4-34) U/L Alkaline Phosphatase (38-126) U/L Troponin I <0.012 (0.000-0.034) ng/mL Total Protein (6.3-8.2) g/dL Albumin (3.5-5.0) g/dL Influenza Type A (PCR) Not Detected (Not Detectd) Influenza Type B (PCR) Not Detected (Not Detectd) RSV (PCR) Not Detected (Not Detectd) SARS-CoV-2 (PCR) Not Detected (Not Detectd) Disposition Clinical Impression: C2 cervical fracture Disposition: OTHER INSTITUTION NOT DEFINED Referrals: Mele Young MD [Primary Care Provider] - 1-2 days Time of Disposition: 16:46 - Out of Hospital Transfer - Req. Specs Out of Hospital Transfer - Requested Specifics: Other Emergency Center ([facility])
[2024-06-12] MEDS: SODIUM CHLORIDE 0.9% 500 ML 500 ML IV STA (14:04)
[2024-06-12 14:15] LABS: Basophils % (A) 0 %; Eosinophils % (A) 0 %; HCT 45.3 % (34.0-46.0); HGB 14.4 gm/dL (11.4-16.0); Lymphocytes # (A) 0.7 k/uL (1.0-4.8); Lymphocytes % (A) 6 %; MCH 29.9 pg (25.0-35.0); MCHC 31.8 g/dL (31.0-37.0); Mean Platelet Volume 7.6; Monocytes # (A) 0.5 k/uL (0-1.0); Monocytes % (A) 5 %; Neutrophils # (A) 9.2 k/uL (1.3-7.7); Neutrophils % (A) 87 %; Platelet Count 167 k/uL (150-450); RBC 4.82 m/uL (3.80-5.40); RDW 13.1 % (11.5-15.5); WBC 10.5 k/uL (3.8-10.6)
[2024-06-12 14:27] LABS: ALT 30 U/L (4-34); AST 50 U/L (14-36); African American GFR (CKD) >90 (>60 ml/min/1.73 sqM); Alkaline Phosphatase 94 U/L (38-126); Anion Gap 6 mmol/L; Blood Urea Nitrogen 20 mg/dL (7-17); Calcium 9.2 mg/dL (8.4-10.2); Carbon Dioxide 26 mmol/L (22-30); Chloride 108 mmol/L (98-107); Glucose 132 mg/dL (74-99); Non-African American GFR(CKD) >90 (>60 ml/min/1.73 sqM); Potassium 4.3 mmol/L (3.5-5.1); Sodium 140 mmol/L (137-145); Total Bilirubin 1.7 mg/dL (0.2-1.3); Total Protein 6.6 g/dL (6.3-8.2)
--- NOTE | 2024-06-12 15:32 | CT ---
EXAMINATION TYPE: CT brain sindhu wo con DATE OF EXAM: 06/12/2024 COMPARISON: 02/15/2023 HISTORY: syncope, fall last night. Patient doesn't remember fall. Left side neck pain. CT DLP: 1308.6 mGycm, Automated exposure control for dose reduction was used. CONTRAST: Patient injected with 0 mL of Isovue 300. CT of the brain is performed utilizing 3 mm thick sections through the posterior fossa and 3 mm thick sections through the remaining calvarium. Study is performed within 24 hours of arrival to the hospital. No abnormal hyperdensity is present to suggest an acute intracranial hemorrhage. No mass lesion is evident. No acute infarcts are evident. Ventricles and sulci are mildly prominent for the patient age. Maybe a small air-fluid level within the left maxillary sinus. Remaining paranasal sinuses and mastoi d air cells within the field of view are clear. There may be a prior left mastoidectomy. IMPRESSIONS: 1. No acute intracranial process. Follow-up MRI can be performed as clinically indicated. 2. Mild age-related atrophy. CT cervical spine. COMPARISON: None CT of the cervical spine is performed in the axial plane at 2 mm thick sections. Reconstructed image s in the coronal, and sagittal plane are reviewed on the computer. There is a fracture at the base of the C2 vertebral body. Its appears to extend across from the anter ior right crossing to the left vertebral body.The dens appears intact. No subluxation of C2 on C3 is evident. Report was called to the emergency room by Dr. Magallanes by telephone 1526 hours. Vertebral body alignment is normal. No subluxation of C2 evident Posterior disc space narrowing is present C3-4, C4-5, C5-6 and throughout the C6-7 level. Vertebral body heights are preserved. No spinal canal stenosis is evident. Some bilateral foraminal narrowing at C4-5 is present IMPRESSION: 1. Fracture through the body of C2 and bilateral pars interarticularis without subluxation. [facility], Workstation: [facility], 06/12/2024 3:30 PM
[2024-06-12] MEDS: ACETAMINOPHEN TAB 325 MG TAB PO STA (16:24)
[2024-06-12 16:29] VITALS: RESP 17
--- NOTE | 2024-06-12 17:03 | XR ---
EXAMINATION TYPE: XR shoulder complete RT DATE OF EXAM: 06/12/2024 COMPARISON: NONE HISTORY: Pain TECHNIQUE: Right Shoulder examined in 3 projections. FINDINGS: The humeral head articulates with the glenoid. The acromio-clavicular junction is normal. No acute fractures or dislocations are evident. A follow up study can be performed 7-10 days from acute trauma for continued pain. MRI can be perfor med if soft tissue evaluation would be of benefit. IMPRESSION: 1. No acute osseous right shoulder abnormality. [facility], Workstation: [facility], 06/12/2024 5:01 PM
--- NOTE | 2024-06-12 17:03 | XR ---
EXAMINATION TYPE: XR chest 2V DATE OF EXAM: 06/12/2024 COMPARISON: 02/21/2023 INDICATION: Syncope hematoma midline neck pain and right shoulder pain TECHNIQUE: Frontal and lateral views of the chest are obtained. FINDINGS: The heart size is normal. The pulmonary vasculature is normal. The lungs are clear. IMPRESSION: 1. No acute pulmonary process. [facility], Workstation: [facility], 06/12/2024 5:00 PM
[2024-06-12 17:51] VITALS: BP 137/65; PULSE 76
== END 2024-06-12 17:51 | disposition other institution (70) ==
LOC: EC 13:24
CPT/HCPCS: 36415; 70450; 71046; 72125; 80053; 83605; 84484; 85025; 87636; 93005; 96360; 96361; 99285